=== PATIENT | male | born 1970 | race African-American/Black ===

== ENCOUNTER 2017-04-09 01:02 | Observation (INO) | payer MEDICARE, MEDICAID ==
[2017-04-09] VITALS (13 sets, daily range): BP systolic 105–145; BP diastolic 64–96; PULSE 94–112; RESP 15–21; TEMP 98.2–98.5; O2SAT 98–100
[~2017-04-09] VITALS: Ht 177.8 cm; Wt 61.3 kg
[2017-04-09] MEDS ORDERED: OCUF0.3D EACH EYE (01:54)
[2017-04-09] MEDS ORDERED: ALBU1.25 NEB (01:54)
[2017-04-09] MEDS ORDERED: SCOP1PAT2 (01:54)
[2017-04-09] MEDS ORDERED: COUM10TA G-TUBE (01:54)
[2017-04-09] MEDS ORDERED: SERO25TA G-TUBE (01:54)
[2017-04-09] MEDS ORDERED: TEGR200T G-TUBE (01:54)
[2017-04-09] MEDS ORDERED: DIAZ2TAB G-TUBE ×2 (01:54)
[2017-04-09] MEDS ORDERED: TIZA2CAP3 G-TUBE (01:54)
--- NOTE | 2017-04-09 02:23 | RADRPT ---
EXAM DATE/TIME: 04/09/2017 01:42 [facility] COMPARISON: No previous studies available for comparison. INDICATIONS : Patient has cough and small hole where trach tube previously was with some air escaping. MEDICAL HISTORY : Unobtainable. SURGICAL HISTORY : Tracheostomy. ENCOUNTER: Initial ACUITY: 1 day PAIN SCORE: Non-responsive. LOCATION: chest FINDINGS: No infiltrate seen. No large effusion. No pneumothorax. I don't see a tracheostomy tube. Filamentous radiopaque foreign body seen projecting over the left upper chest, could be a retained ca theter or lead. I don't have any priors. CONCLUSION: 1. No infiltrate, pneumothorax or significant effusion 2. Filamentous radiopaque foreign body projecting over the left upper chest as above.. Saud Jaramillo MD on April 09, 2017 at 2:20 Board Certified Radiologist. This report was verified electronically.
[2017-04-09 03:16] LABS: AUTOMATED NEUTROPHIL # 4.1 TH/MM3 (1.8-7.7); BASOPHIL # 0.1 TH/MM3 (0-0.2); BASOPHIL % 1.1 % (0.0-2.0); EOSINOPHIL # 0.4 TH/MM3 (0-0.4); EOSINOPHIL % 5.2 % (0.0-4.0); HEMATOCRIT 36.5 % (39.0-51.0); HEMO FLAGS DIFF FINAL; LYMPH % 26.7 % (9.0-44.0); MEAN CELL VOLUME 87.2 FL (80.0-100.0); MEAN CORPUSCULAR HEMOGLOBIN 30.1 PG (27.0-34.0); MEAN CORPUSCULAR HGB CONC 34.5 % (32.0-36.0); MONO % 12.1 % (0.0-8.0); NEUT % 54.9 % (16.0-70.0); PLATELET COUNT 318 TH/MM3 (150-450); RED BLOOD COUNT 4.19 MIL/MM3 (4.50-5.90); WHITE BLOOD COUNT 7.6 TH/MM3 (4.0-11.0)
[2017-04-09 03:38] LABS: ANION GAP 7 MEQ/L (5-15); AST (GOT) 37 U/L (15-37); BICARBONATE 30.7 MEQ/L (21.0-32.0); BLOOD UREA NITROGEN 11 MG/DL (7-18); CHLORIDE 101 MEQ/L (98-107); GLOMERULAR FILTRATION RATE 184 ML/MIN (>89); POTASSIUM 3.9 MEQ/L (3.5-5.1); SODIUM (NA) 139 MEQ/L (136-145)
[2017-04-09 03:41] LABS: ALKALINE PHOSPHATASE 103 U/L (45-117); ALT (GPT) 108 U/L (12-78); TOTAL BILIRUBIN ADULT 0.2 MG/DL (0.2-1.0)
--- NOTE | 2017-04-09 03:59 | PD ---
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 It is unclear when it fell out. Patient has history of Anoxic brain injury, is nonverbal, cannot provide any history. PFSH Past Medical History Asthma: No Autoimmune Disease: No Blood Disorders: No Cancer: No Cardiovascular Problems: Yes High Cholesterol: Yes COPD: No Cerebrovascular Accident: No Diabetes: No Gastrointestinal Disorders: Yes Genitourinary: No Headaches: No Hypertension: Yes Musculoskeletal: No Neurologic: Yes Psychiatric: No Respiratory: Yes Seizures: Yes Thyroid Disease: No Tetanus Vaccination: < 5 Years Influenza Vaccination: No Past Surgical History Abdominal Surgery: Yes (PEG) AICD: No Cardiac Surgery: No Ear Surgery: No Endocrine Surgery: No Eye Surgery: No Genitourinary Surgery: No Gynecologic Surgery: No Oral Surgery: No Pacemaker: No Thoracic Surgery: No Other Surgery: Yes (TRACHEOSTOMY) Social History Alcohol Use: No Tobacco Use: No Substance Use: No Allergies-Medications (Allergen,Severity, Reaction): Coded Allergies: Lactose (Verified Allergy, Severe, 04/09/17) Reported Meds & Prescriptions Reported Meds & Active Scripts Active Reported Transderm-Scop (Scopolamine) 1 Mg/3 Days Dis 1.5 Mg Q3D Tizanidine (Tizanidine HCl) 2 Mg Cap 2 Mg G-TUBE DAILY Tegretol (Carbamazepine) 200 Mg Tab 300 Mg G-TUBE BID Tegretol (Carbamazepine) 200 Mg Tab 200 Mg G-TUBE BID Seroquel (Quetiapine Fumarate) 25 Mg Tab 25 Mg G-TUBE TID Ocuflox Opth Drops (Ofloxacin Opth Drops) 0.3 % Drops 1 Drop EACH EYE QID Diazepam 2 Mg Tab 2 Mg G-TUBE Q8HR PRN Diazepam 2 Mg Tab 2 Mg G-TUBE Q6HR PRN Coumadin (Warfarin) 10 Mg Tab 8.5 Mg G-TUBE DAILY Albuterol Neb (Albuterol Sulfate) 1.25 Mg/3 Ml Neb 1.25 Mg NEB Q4HR NEB PRN Review of Systems ROS Limitations: Other: (anoxic brain injury, nonverbal) Physical Exam Narrative GENERAL: Awake and alert, but does not respond when spoken to. SKIN: Focused skin assessment warm/dry. HEAD: Atraumatic. Normocephalic. EYES: Pupils equal and round. No scleral icterus. ENT: Mucous membranes pink and moist. NECK: Tracheostomy stoma present, but mostly closed. CARDIOVASCULAR: Regular rate and rhythm. No murmur appreciated. RESPIRATORY: No accessory muscle use. Clear to auscultation. Breath sounds equal bilaterally. GASTROINTESTINAL: Abdomen soft, non-tender, nondistended. Hepatic and splenic margins not palpable. MUSCULOSKELETAL: No obvious deformities. No clubbing. No cyanosis. No edema. contracted extremities. NEUROLOGICAL: Awake, but does not respond. Data Data Last Documented VS Vital Signs Date Time Temp Pulse Resp B/P Pulse Ox O2 Delivery O2 Flow Rate FiO2 04/09/17 01:13 100 21 04/09/17 01:08 94 18 Room Air 04/09/17 01:04 98.4 110/69 Orders Complete Blood Count With Diff (04/09/17 01:37) Comprehensive Metabolic Panel (04/09/17 01:37) Iv Access Insert/Monitor (04/09/17 01:37) Chest, Single Ap (04/09/17 ) Place In Observation (04/09/17 ) Vital Signs (Adult) Q4H (04/09/17 03:46) Activity Oob With Assistance (04/09/17 03:46) Director Funds Development / Telemetry .CONTINUOUS (04/09/17 03:46) Diet Npo (04/09/17 Breakfast) Sodium Chloride 0.9% Flush (Ns Flush) (04/09/17 04:00) Sodium Chloride 0.9% Flush (Ns Flush) (04/09/17 09:00) Resp Oxygen Rory C Titrat 1-4 L (04/09/17 ) Case Management Consult (04/09/17 03:46) Naloxone Inj (Narcan Inj) (04/09/17 04:00) Admit Order (Ed Use Only) (04/09/17 ) Consult General Surgery (04/09/17 ) Labs Laboratory Tests Test 04/09/17 03:03 White Blood Count 7.6 TH/MM3 Red Blood Count 4.19 MIL/MM3 Hemoglobin 12.6 GM/DL Hematocrit 36.5 % Mean Corpuscular Volume 87.2 FL Mean Corpuscular Hemoglobin 30.1 PG Mean Corpuscular Hemoglobin 34.5 % Concent Red Cell Distribution Width 15.0 % Platelet Count 318 TH/MM3 Mean Platelet Volume 7.4 FL Neutrophils (%) (Auto) 54.9 % Lymphocytes (%) (Auto) 26.7 % Monocytes (%) (Auto) 12.1 % Eosinophils (%) (Auto) 5.2 % Basophils (%) (Auto) 1.1 % Neutrophils # (Auto) 4.1 TH/MM3 Lymphocytes # (Auto) 2.0 TH/MM3 Monocytes # (Auto) 0.9 TH/MM3 Eosinophils # (Auto) 0.4 TH/MM3 Basophils # (Auto) 0.1 TH/MM3 CBC Comment DIFF FINAL Differential Comment Sodium Level 139 MEQ/L Potassium Level 3.9 MEQ/L Chloride Level 101 MEQ/L Carbon Dioxide Level 30.7 MEQ/L Anion Gap 7 MEQ/L Blood Urea Nitrogen 11 MG/DL Creatinine 0.58 MG/DL Estimat Glomerular Filtration 184 ML/MIN Rate Random Glucose 87 MG/DL Calcium Level 8.8 MG/DL Total Bilirubin 0.2 MG/DL Aspartate Amino Transf 37 U/L (AST/SGOT) Alanine Aminotransferase 108 U/L (ALT/SGPT) Alkaline Phosphatase 103 U/L Total Protein 8.1 GM/DL Albumin 2.7 GM/DL [facility] Medical Decision Making Medical Screen Exam Complete: Yes Emergency Medical Condition: Yes Medical Record Reviewed: Yes Differential Diagnosis respiratory issues vs tracheostomy displacement vs pneumonia Narrative Course Patient is a 46 year old male sent from [place] because his tracheostomy tube fell out. Exam shows the stoma is mostly closed. Patient is in no respiratory distress, he is maintaining his oxygen saturation on room air. I attempted to put in a new tube, however, the whole has closed too much and I am unable to reintroduce the tube at this time. Patient is currently stable and in no distress. Will be admitted for surgical placement a new tracheostomy. Diagnosis Primary Impression: Tracheostomy malfunction Admitting Information Admitting Physician Requests: Admit Condition: Stable Bettye Ritchie MD Apr 09, 2017 03:59
[2017-04-09] MEDS ORDERED: NALOXONE HCL 0.4 MG/ML AMP IV PRN (04:00)
[2017-04-09] MEDS ORDERED: SODIUM CHLORIDE 0.9% FLUSH 10 ML FLUSH IV FLUSH PRN (04:00)
[2017-04-09 05:26] LABS: PROTHROMBIN TIME - PATIENT 11.4 SEC (9.8-11.6)
--- NOTE | 2017-04-09 06:53 | HHI.HP ---
[facility] Primary Care Physician Luis Brady MD Admission Diagnosis Tracheostomy replacement Diagnoses: Travel History International Travel<30 Days: No Contact w/Intl Traveler <30 Da: No Traveled to Known Affected Are: No History of Present Illness History from [facility] transfer notes, your physician communication, and review of medical records. Patient is a young gentleman who had anoxic brain injury and permanent vegetative state since prior to 32 years old. He has been taking care of by his family members up until February 22 16. he was then taken care of by his family members prior to this. He was brought into the hospital because his tracheostomy tube was accidentally dislodged at the nursing facility. Patient is not able to give any history. He is saturating 98% on room air. Mild tachycardia around 110. Review of Systems ROS Limitations: Altered Mental Status, Unresponsive Past Family Social History Past Medical History Per [facility] transfer note: Persistent vegetative state Anxiety disorder DVT Chronic respiratory failure status post tracheostomy Anxiety disorder Unspecified comvulsions Unspecified muscle spasms History of pulmonary embolism Status post PEG tube Open wound of left laser toes endopthalmitis Past Surgical History Tracheostomy PEG tube placement Reported Medications Patient's medications list from the nursing homereviewed Allergies: Coded Allergies: Lactose (Verified Allergy, Severe, 04/09/17) Family History Unknown Social History Unknown. Currently vegetative since prior to age of [age] years old. Physical Exam Vital Signs Vital Signs Date Time Temp Pulse Resp B/P Pulse Ox O2 Delivery O2 Flow Rate FiO2 04/09/17 04:58 99 21 04/09/17 01:13 100 21 04/09/17 01:08 94 18 100 Room Air 04/09/17 01:04 98.4 94 18 110/69 100 Physical Exam GENERAL: This is unfortunate, bed bound, contracted, non communicative patient in a vegetative state- in no apparent distress. SKIN: No rashes, ecchymoses or lesions. Cool and dry. HEAD: Atraumatic. Normocephalic. No temporal or scalp tenderness. EYES: No scleral icterus. No injection or drainage. ENT: Nose without bleeding, purulent drainage or septal hematoma. Significant secretions from mouth. Tracheostomy site with open site, thick secretions white NECK: Trachea midline. No JVD. CARDIOVASCULAR: Regular rate and rhythm without murmurs, gallops, or rubs. RESPIRATORY: Breath sounds equal bilaterally. bilateral congested sounds GASTROINTESTINAL: Abdomen soft, non-tender, nondistended. No guarding. MUSCULOSKELETAL: Extremities without clubbing, cyanosis, or edemaNo calf symmetry. Bilateral atrophic LE . Bilateral UE and LE contractures NEUROLOGICAL: non verbal, unresponsive, eyes spontaneously open though not tracking, Laboratory Laboratory Tests Test 04/09/17 04/09/17 03:03 05:02 White Blood Count 7.6 Red Blood Count 4.19 Hemoglobin 12.6 Hematocrit 36.5 Mean Corpuscular Volume 87.2 Mean Corpuscular Hemoglobin 30.1 Mean Corpuscular Hemoglobin 34.5 Concent Red Cell Distribution Width 15.0 Platelet Count 318 Mean Platelet Volume 7.4 Neutrophils (%) (Auto) 54.9 Lymphocytes (%) (Auto) 26.7 Monocytes (%) (Auto) 12.1 Eosinophils (%) (Auto) 5.2 Basophils (%) (Auto) 1.1 Neutrophils # (Auto) 4.1 Lymphocytes # (Auto) 2.0 Monocytes # (Auto) 0.9 Eosinophils # (Auto) 0.4 Basophils # (Auto) 0.1 CBC Comment DIFF FINAL Differential Comment Sodium Level 139 Potassium Level 3.9 Chloride Level 101 Carbon Dioxide Level 30.7 Anion Gap 7 Blood Urea Nitrogen 11 Creatinine 0.58 Estimat Glomerular Filtration 184 Rate Random Glucose 87 Calcium Level 8.8 Total Bilirubin 0.2 Aspartate Amino Transf 37 (AST/SGOT) Alanine Aminotransferase 108 (ALT/SGPT) Alkaline Phosphatase 103 Total Protein 8.1 Albumin 2.7 Prothrombin Time 11.4 Prothromb Time International 1.0 Ratio Blood Type A POSITIVE Antibody Screen NEGATIVE Blood Bank Comment Result Diagram: 04/09/17 0303 04/09/17 0303 Imaging Last 48 hours Impressions Chest X-Ray 04/09/17 0000 Signed Impressions: Service Date/Time: Sunday, April 09, 2017 01:42 - CONCLUSION: 1. No infiltrate, pneumothorax or significant effusion 2. Filamentous radiopaque foreign body projecting over the left upper chest as above.. Saud Jaramillo MD Assessment and Plan Assessment and Plan Impression: tracheostomy dislodged Co morbid conditions: Persistent vegetative state Anxiety disorder DVT Chronic respiratory failure status post tracheostomy Anxiety disorder Unspecified comvulsions Unspecified muscle spasms History of pulmonary embolism Status post PEG tube Open wound of left laser toes endopthalmitis Plan: Patient has been observed a few hours in the emergency room. There is no evidence of hypoxia. She was saturating 98% on term care. However though he does have quite a bit of secretions from both the tracheostomy site and from his mouth. Review of records from [facility] also revealed that patient does have these secretions chronically. Would obtain oxygen supplementation if needed. General surgery consult for surgical placement of this tracheostomy back. Stat PT/INR. Resume home meds apart from Coumadin. DVT prophylaxisto restart Coumadin once no further surgical intervention. Patient would need Lovenox therapeutic overlap as well. GI prophylaxis on pantoprazole. Code Status full code Discussed Condition With ER , nursing staff Darek Hui MD Apr 09, 2017 06:53
[2017-04-09] MEDS ORDERED: RESP: ALBUTEROL 1.25 MG/3 ML NEB (PRN) NEB (07:15)
[2017-04-09] MEDS ORDERED: DIAZEPAM 2 MG TAB G-TUBE PRN ×2 (07:15)
--- NOTE | 2017-04-09 08:28 | HHI.PR ---
Subjective Remarks Patient admitted for trach malfunction. Currently requiring suctioning. O2 sats in low 90s. Discussed with respiratory therapy, ER nurse. Objective Vitals Vital Signs Date Time Temp Pulse Resp B/P Pulse Ox O2 Delivery O2 Flow Rate FiO2 04/09/17 07:30 104 15 114/65 98 Room Air 04/09/17 04:58 99 21 04/09/17 01:13 100 21 04/09/17 01:08 94 18 100 Room Air 04/09/17 01:04 98.4 94 18 110/69 100 Result Diagram: 04/09/17 0303 04/09/17 0303 Imaging Last Impressions Chest X-Ray 04/09/17 0000 Signed Impressions: Service Date/Time: Sunday, April 09, 2017 01:42 - CONCLUSION: 1. No infiltrate, pneumothorax or significant effusion 2. Filamentous radiopaque foreign body projecting over the left upper chest as above.. Saud Jaramillo MD Objective Remarks General: No acute distress. HEENT: Tracheostomy site with significant scar tissue and thick white secretions. Heart: Regular rate and rhythm. No murmur. Lungs: Coarse breath sounds bilaterally. Breathing is nonlabored. Abdomen: Soft, nontender, nondistended. Extremities: No lower extremity edema. Psych: Nonverbal, does not follow commands. Vascular Central Line Catheter: No A/P Problem List: (1) Tracheostomy malfunction ICD Code: J95.03 Status: Acute Assessment and Plan 1. Tracheostomy malfunction: The patient's tracheostomy became dislodged at the nursing facility. The ER physician was unable to replace the tracheostomy. Gen. surgery consultation is pending. Patient maintains oxygen saturations in the mid to upper 90s until he requires suctioning of thick secretions. At that time his oxygen saturation drops to the low 90s. Discussed with respiratory therapy. Will place trach collar while awaiting general surgery evaluation. 2. Persistent vegetative state: Continue current care. Tube feeds via PEG tube. 3. History of DVT: Coumadin on hold for probable surgical procedure. Restart anticoagulation following procedure. Discharge Planning Anticipate discharge back to nursing facility soon following replacement of tracheostomy. Reilly Kelley MD Apr 09, 2017 08:28
[2017-04-09] MEDS ORDERED: SCOPOLAMINE 1.5 MG PATCH T-DERMAL SCH (09:00)
[2017-04-09] MEDS: OFLOXACIN 0.3% OPTH SOLN 5 ML BTL EACH EYE SCH ×2 (09:34→14:05)
[2017-04-09] MEDS: carBAMazepine 200 MG TAB G-TUBE SCH ×4 (09:35→22:49)
[2017-04-09] MEDS: QUEtiapine FUMARATE 25 MG TAB G-TUBE SCH ×2 (09:35→14:05)
[2017-04-09] MEDS: SODIUM CHLORIDE 0.9% FLUSH 10 ML FLUSH IV FLUSH SCH ×2 (09:36→22:49)
[2017-04-09] MEDS ORDERED: PROPOFOL 200 MG/20 ML AMP IV ONE (12:00)
[2017-04-09] MEDS ORDERED: PHENYLEPH/NS 1000 MCG/10 ML SYR IV ONE (12:00)
--- NOTE | 2017-04-09 12:30 | PD.CONS ---
cc: Francisco Bowling MD HPI Service General Surgery Consult Requested By Dr. Hui Reason for Consult Tracheostomy tube replacement Primary Care Physician Luis Brady MD History of Present Illness This is a 46-year-old male status post tracheostomy tube and PEG placement approximately 14 years ago after having an anoxic brain injury related to overdose of Haldol. He currently resides in a [facility]. He has his tracheostomy tube changed approximately every [address] Tolentino in [place]. The patient is only on humidified oxygen. The patient does have copious secretions from the tracheostomy tube and is requesting a tracheostomy to be replaced. The emergency room doctor attempted to replaced his tracheostomy tube but the stoma had already started to close. The patient is currently able to protect his airway. The patient usual has a #[address] tracheostomy tube in place. A General Surgery consultation has been requested for replacement of tracheostomy tube. Review of Systems ROS Limitations: Other (Persistant vegative state ) Past Family Social History Past Medical History Persistent vegetative state Anoxic brain injury Seizure Past Surgical History Tracheostomy tube placement PEG placement Reported Medications Please see chart but of note he does take Coumadin Allergies: Coded Allergies: Lactose (Verified Allergy, Severe, 04/09/17) Active Ordered Medications Current Medications Medications (Trade) Dose Ordered Sig/Sveta Route Start Time Stop Time Status Last Admin (NS Flush) 2 ml UNSCH PRN IV FLUSH 04/09/17 04:00 (NS Flush) 2 ml BID IV FLUSH 04/09/17 09:00 04/09/17 09:36 (Narcan Inj) 0.4 mg UNSCH PRN IV 04/09/17 04:00 (TEGretol) 200 mg BID G-TUBE 04/09/17 09:00 04/09/17 09:35 (TEGretol) 300 mg BID G-TUBE 04/09/17 09:00 04/09/17 09:35 (Valium) 2 mg Q6HR PRN G-TUBE 04/09/17 07:15 (Valium) 2 mg Q8HR PRN G-TUBE 04/09/17 07:15 (Ocuflox 0.3% Opth Soln) 1 drop QID EACH EYE 04/09/17 09:00 04/09/17 09:34 (SEROquel) 25 mg TID G-TUBE 04/09/17 09:00 04/09/17 09:35 (Transderm-Scop 1.5 Mg Patch.72 Hr) 1 patch Q3D T-DERMAL 04/09/17 09:00 04/09/17 09:35 (Zanaflex) 2 mg DAILY G-TUBE 04/09/17 09:00 04/09/17 09:35 Miscellaneous Information 1 Q3D T-DERMAL 04/12/17 09:00 Family History Non contributory Social History No tobacco use No ETOH use No illicit drug use The patient resides in a [facility]. Physical Exam Vital Signs Vital Signs Date Time Temp Pulse Resp B/P Pulse Ox O2 Delivery O2 Flow Rate FiO2 04/09/17 10:00 103 20 105/64 100 Room Air 04/09/17 08:15 100 Trach Collar 50 04/09/17 07:30 104 15 114/65 98 Room Air 04/09/17 04:58 99 21 04/09/17 01:13 100 21 04/09/17 01:08 94 18 100 Room Air 04/09/17 01:04 98.4 94 18 110/69 100 Physical Exam GENERAL: 46 year old chronically ill appearing male in no acute distress. SKIN: Warm and dry. HEAD: Atraumatic. Normocephalic. EYES: Pupils equal and round. No scleral icterus. No injection or drainage. ENT: No nasal bleeding or discharge. Mucous membranes pink and moist. NECK: Prior trach site with closing stoma; on humidified air; minimal thin secretions from stoma. CARDIOVASCULAR: Regular rate and rhythm. Mildly tachycardic. RESPIRATORY: No accessory muscle use. Mild course breath sounds. GASTROINTESTINAL: Abdomen soft, non-tender, nondistended. PEG in place. MUSCULOSKELETAL: BUE and BLE contractures. NEUROLOGICAL: Patient non verbal; awake; not able to follow commands. PSYCHIATRIC: Unable to examine. Laboratory Laboratory Tests Test 04/09/17 04/09/17 03:03 05:02 White Blood Count 7.6 Red Blood Count 4.19 Hemoglobin 12.6 Hematocrit 36.5 Mean Corpuscular Volume 87.2 Mean Corpuscular Hemoglobin 30.1 Mean Corpuscular Hemoglobin 34.5 Concent Red Cell Distribution Width 15.0 Platelet Count 318 Mean Platelet Volume 7.4 Neutrophils (%) (Auto) 54.9 Lymphocytes (%) (Auto) 26.7 Monocytes (%) (Auto) 12.1 Eosinophils (%) (Auto) 5.2 Basophils (%) (Auto) 1.1 Neutrophils # (Auto) 4.1 Lymphocytes # (Auto) 2.0 Monocytes # (Auto) 0.9 Eosinophils # (Auto) 0.4 Basophils # (Auto) 0.1 CBC Comment DIFF FINAL Differential Comment Sodium Level 139 Potassium Level 3.9 Chloride Level 101 Carbon Dioxide Level 30.7 Anion Gap 7 Blood Urea Nitrogen 11 Creatinine 0.58 Estimat Glomerular Filtration 184 Rate Random Glucose 87 Calcium Level 8.8 Total Bilirubin 0.2 Aspartate Amino Transf 37 (AST/SGOT) Alanine Aminotransferase 108 (ALT/SGPT) Alkaline Phosphatase 103 Total Protein 8.1 Albumin 2.7 Prothrombin Time 11.4 Prothromb Time International 1.0 Ratio Blood Type A POSITIVE Antibody Screen NEGATIVE Blood Bank Comment Result Diagram: 04/09/17 0303 04/09/17 0303 Imaging Last 48 hours Impressions Chest X-Ray 04/09/17 0000 Signed Impressions: Service Date/Time: Sunday, April 09, 2017 01:42 - CONCLUSION: 1. No infiltrate, pneumothorax or significant effusion 2. Filamentous radiopaque foreign body projecting over the left upper chest as above.. Saud Jaramillo MD Assessment and Plan Assessment and Plan 46 year old male s/p anoxic brain injury with chronic tracheostomy tube and PEG placement; dislodgement of trach at [facility] -Plan for OR replacement of trach today -Continue to hold Coumadin; INR 1.0 -NPO -Obtain consents -Discussed with patient's mother and aunt bedside -Discussed with DONA Dumont -Thank you for this consult; We will continue to follow I CERTIFY AND ATTEST THAT I PERSONALLY EXAMINED THE PATIENT AND REVIEWED EMR. MS LUNDBERG DOCUMENTED OUR VISIT. I DISCUSSED CASE WITH PATIENT'S MOTHER AND SHE AGREES TO PLAN. WILL TAKE HIM TO THE OR AND REPLACE AND UPSIZE HIS TRACHEOSTOMY TO A 8 SHILEY. FRANCISCO BOWLING MD FACS Discussed Condition With Dr. Bowling Mr. Hill's family at bedside Rhoda Benoit Apr 09, 2017 12:30 Francisco Bowling MD Apr 09, 2017 20:22
[2017-04-09] MEDS ORDERED: LIDOCAINE 1%/EPINEPHrine 1:100,000 SOLN 20 ML VIAL ONE (12:52)
[2017-04-09] MEDS ORDERED: KETAMINE HCL 500 MG/5 ML VIAL ONE (15:11)
[2017-04-09] MEDS ORDERED: ceFAZolin INJ 1,000 MG VIAL IV ONE (15:35)
[2017-04-09] MEDS ORDERED: SUGAMMADEX SODIUM 200 MG/2 ML VIAL IV PUSH ONE ×2 (15:55)
[2017-04-09] MEDS ORDERED: DO NOT ADM ANY ANTICOAGULANT DRUGS PRN (16:09)
[2017-04-09] MEDS ORDERED: *MEPERIDINE 25 MG INJ VIAL PERIprocedural Use ONLY ONE (16:16)
--- NOTE | 2017-04-09 17:20 | RADRPT ---
EXAM DATE/TIME: 04/09/2017 16:50 [facility] COMPARISON: CHEST SINGLE AP, April 09, 2017, 1:42. INDICATIONS : Tracheostomy placement. MEDICAL HISTORY : None. SURGICAL HISTORY : Tracheostomy. ENCOUNTER: Initial ACUITY: 1 day PAIN SCORE: 0/10 LOCATION: Bilateral chest FINDINGS: A single view of the chest demonstrates patient's hands folded over the chest with limited visualizat ion of the lungs themselves. Tracheostomy tube is identified with the tip positioned at the clavicula r head. Osseous structures are grossly intact. CONCLUSION: 1. Tracheostomy tube is appropriately positioned with the tip at the level of the clavicular heads. 2. Most of the lungs are obscured by the bones of the hands bilaterally. The lung apices are clear. Bassam Alcantara MD on April 09, 2017 at 17:17 Board Certified Radiologist. This report was verified electronically.
[2017-04-10] VITALS (7 sets, daily range): BP systolic 90–132; BP diastolic 53–87; PULSE 77–123; RESP 16–20; TEMP 98.2–99; O2SAT 93–100
[2017-04-10] MEDS: SODIUM CHLORIDE 0.9% FLUSH 10 ML FLUSH IV FLUSH SCH ×2 (08:24→21:00)
[2017-04-10] MEDS: carBAMazepine 200 MG TAB G-TUBE SCH ×4 (09:45→21:16)
[2017-04-10] MEDS: QUEtiapine FUMARATE 25 MG TAB G-TUBE SCH ×3 (09:45→18:39)
--- NOTE | 2017-04-10 10:16 | HHI.PR ---
Subjective Remarks Follow up trach malfunction. No events reported overnight by nursing. Patient is nonverbal and does not follow commands. Objective Vitals Vital Signs Date Time Temp Pulse Resp B/P Pulse Ox O2 Delivery O2 Flow Rate FiO2 04/10/17 04:00 98.9 105 18 119/63 100 04/10/17 03:54 Trach Collar 28 04/10/17 00:00 Trach Collar 28 Humidified 04/10/17 00:00 98.2 97 16 132/75 100 04/09/17 20:57 100 T-piece 6.00 28 04/09/17 20:00 107 04/09/17 20:00 Trach Collar 28 Humidified 04/09/17 20:00 98.5 96 16 131/82 100 04/09/17 17:48 98.2 96 20 145/96 100 04/09/17 17:15 91 18 118/72 100 T-Piece 28 Humidified 04/09/17 17:00 96 18 112/68 100 T-Piece 28 Humidified 04/09/17 16:45 107 21 110/64 100 T-Piece 28 Humidified 04/09/17 16:30 117 24 104/65 100 T-Piece 28 Humidified 04/09/17 16:15 125 30 147/88 100 Trach Collar 50 Humidified 04/09/17 16:12 97.3 115 30 132/90 100 Trach Collar 50 04/09/17 14:00 99 20 124/92 100 Trach Collar 50 04/09/17 13:00 98 20 123/83 100 Trach Collar 50 04/09/17 12:00 102 21 127/87 100 Trach Collar 50 04/09/17 11:00 112 20 117/81 100 Trach Collar 50 I/O 04/09/17 04/09/17 04/09/17 04/10/17 04/10/17 04/10/17 07:00 15:00 23:00 07:00 15:00 23:00 Intake Total 989 ml 509 ml Output Total 75 ml 450 ml Balance 914 ml 59 ml Intake Oral 0 ml IV Total 200 ml Tube Feeding 189 ml 459 ml Other 600 ml 50 ml Output Urine Total 450 ml Estimated Blood Loss 75 ml # Voids 0 # Bowel Movements 2 1 Result Diagram: 04/09/17 0303 04/09/17 0303 Imaging Last Impressions Chest X-Ray 04/09/17 0000 Signed Impressions: Service Date/Time: Sunday, April 09, 2017 16:50 - CONCLUSION: 1. Tracheostomy tube is appropriately positioned with the tip at the level of the clavicular heads. 2. Most of the lungs are obscured by the bones of the hands bilaterally. The lung apices are clear. Bassam Alcantara MD Objective Remarks General: No acute distress. HEENT: Tracheostomy with small amount of bloody drainage. Heart: Regular rate and rhythm. No murmur. Lungs: Coarse breath sounds bilaterally. Breathing is nonlabored. Abdomen: Soft, nontender, nondistended. Extremities: No lower extremity edema. Psych: Nonverbal, does not follow commands. Procedures 04/09/17 tracheostomy placement Urinary Catheter: No Vascular Central Line Catheter: No A/P Problem List: (1) Tracheostomy malfunction ICD Code: J95.03 Status: Acute Assessment and Plan 1. Tracheostomy malfunction: The patient's tracheostomy became dislodged at the nursing facility. The ER physician was unable to replace the tracheostomy. Status post replacement of tracheostomy by general surgery. 2. Persistent vegetative state: Continue current care. Tube feeds via PEG tube. 3. History of DVT: Resume Coumadin when okay by general surgery. Discharge Planning Plan for discharge to SNF when cleared by surgery. Reilly Kelley MD Apr 10, 2017 10:16
[2017-04-10] MEDS: OFLOXACIN 0.3% OPTH SOLN 5 ML BTL EACH EYE SCH ×4 (11:36→21:16)
--- NOTE | 2017-04-10 17:31 | HHI.PR ---
Subjective Subjective Notes Trach site looks fine Objective Vitals/I&O Vital Signs Date Time Temp Pulse Resp B/P Pulse Ox O2 Delivery O2 Flow Rate FiO2 04/10/17 08:00 99.0 91 20 121/70 100 04/10/17 03:54 Trach Collar 28 04/09/17 20:57 6.00 Radiology Last 48 hours Impressions Chest X-Ray 04/09/17 0000 Signed Impressions: Service Date/Time: Sunday, April 09, 2017 01:42 - CONCLUSION: 1. No infiltrate, pneumothorax or significant effusion 2. Filamentous radiopaque foreign body projecting over the left upper chest as above.. Saud Jaramillo MD Narrative Exam no bloody drainage or otherwise around trach. A/P Assessment and Plan POD replace trach. Uncomplicated. Will sign off. Bala Patricia MD Apr 10, 2017 17:31
[2017-04-11] VITALS: BP 120/60; PULSE 116; RESP 20; TEMP 98; O2SAT 97
[2017-04-11 06:00] VITALS: BP 116/68; PULSE 100; RESP 20; TEMP 98.6; O2SAT 99
[2017-04-11 07:15] VITALS: O2SAT 99
[2017-04-11 08:30] VITALS: PULSE 110
[2017-04-11 08:54] VITALS: BP 117/66; PULSE 113; TEMP 99.4; O2SAT 100
[2017-04-11] MEDS ORDERED: carBAMazepine 200 MG TAB G-TUBE SCH (09:00)
--- NOTE | 2017-04-11 09:05 | HHI.DCPOC ---
Discharge Care Plan Diagnosis: (1) Tracheostomy malfunction Goals to Promote Your Health * To prevent worsening of your condition and complications * To maintain your health at the optimal level Directions to Meet Your Goals Take your medications as prescribed Follow your dietary instruction Follow activity as directed Keep your appointments as scheduled Take your immunizations and boosters as scheduled If your symptoms worsen call your PCP, if no PCP go to Urgent Care Center or Emergency Room Smoking is Dangerous to Your Health. Avoid second hand smoke Call the 24-hour hour crisis hotline for domestic abuse at Reilly Kelley MD Apr 11, 2017 09:05
[2017-04-11] MEDS: QUEtiapine FUMARATE 25 MG TAB G-TUBE SCH ×2 (09:57→13:23)
[2017-04-11] MEDS: SODIUM CHLORIDE 0.9% FLUSH 10 ML FLUSH IV FLUSH SCH (10:03)
[2017-04-11] MEDS: OFLOXACIN 0.3% OPTH SOLN 5 ML BTL EACH EYE SCH ×2 (10:03→13:24)
[2017-04-11] MEDS ORDERED: DIAZ2TAB G-TUBE ×2 (10:20)
--- NOTE | 2017-04-11 10:23 | HHI.PR ---
Subjective Remarks Follow up trach malfunction. No events reported by nursing. General surgery signed off. Objective Vitals Vital Signs Date Time Temp Pulse Resp B/P Pulse Ox O2 Delivery O2 Flow Rate FiO2 04/11/17 08:54 99.4 113 117/66 100 04/11/17 07:15 T-Piece 5.00 28 04/11/17 06:00 98.6 100 20 116/68 99 04/11/17 04:00 T-Piece 4.00 28 04/11/17 00:00 98.0 116 20 120/60 97 04/11/17 00:00 T-Piece 4.00 28 04/10/17 21:10 93 T-piece 5.00 28 04/10/17 20:00 T-Piece 4.00 28 04/10/17 20:00 98.2 123 20 116/55 96 04/10/17 20:00 111 04/10/17 16:00 98.3 113 20 116/75 97 04/10/17 12:00 98.5 77 20 90/53 100 I/O 04/10/17 04/10/17 04/10/17 04/11/17 04/11/17 04/11/17 06:59 14:59 22:59 06:59 14:59 22:59 Intake Total 509 ml 0 ml 844 ml 529 ml Output Total 450 ml 400 ml 0 ml Balance 59 ml -400 ml 844 ml 529 ml Intake Oral 0 ml 0 ml Tube Feeding 459 ml 784 ml 469 ml Tube Irrigant 60 ml 60 ml Other 50 ml Output Urine Total 450 ml 400 ml 0 ml # Voids 1 2 # Bowel Movements 1 1 Result Diagram: 04/09/17 0303 04/09/17 0303 Imaging Last Impressions Chest X-Ray 04/09/17 0000 Signed Impressions: Service Date/Time: Sunday, April 09, 2017 16:50 - CONCLUSION: 1. Tracheostomy tube is appropriately positioned with the tip at the level of the clavicular heads. 2. Most of the lungs are obscured by the bones of the hands bilaterally. The lung apices are clear. Bassam Alcantara MD Objective Remarks General: No acute distress. HEENT: Tracheostomy. Heart: Regular rate and rhythm. No murmur. Lungs: Coarse breath sounds bilaterally. Breathing is nonlabored. Abdomen: Soft, nontender, nondistended. Extremities: No lower extremity edema. Psych: Nonverbal, does not follow commands. Procedures 04/09/17 tracheostomy placement Urinary Catheter: No Vascular Central Line Catheter: No A/P Problem List: (1) Tracheostomy malfunction ICD Code: J95.03 Status: Acute Assessment and Plan 1. Tracheostomy malfunction: The patient's tracheostomy became dislodged at the nursing facility. The ER physician was unable to replace the tracheostomy. Status post replacement of tracheostomy by general surgery. Remained stable overnight. 2. Persistent vegetative state: Continue current care. Tube feeds via PEG tube. 3. History of DVT: Resume Coumadin. Discharge Planning Discharge to SNF. Reilly Kelley MD Apr 11, 2017 10:23
[2017-04-11 12:40] VITALS: BP 112/72; PULSE 91; TEMP 98.6; O2SAT 98
--- NOTE | 2017-04-11 19:22 | MP ---
cc: FRANCISCO BOWLING M.D. DATE OF SURGERY 04/09/2017 PREOPERATIVE DIAGNOSES 1. Dislodged tracheostomy. 2. Chronic tracheostomy secondary to a anoxic brain injury. POSTOPERATIVE DIAGNOSES 1. Dislodged tracheostomy. 2. Chronic tracheostomy secondary to a anoxic brain injury. PROCEDURE PERFORMED Revision percutaneous tracheostomy tube #8 Shiley. SURGEON Francisco Bowling MD ANESTHESIA General endotracheal. COMPLICATIONS None. INDICATION FOR THE PROCEDURE Mr. Hill is an unfortunate 46-year-old Afro-Indian male who apparently suffered an anoxic brain injury many years ago. He has had a chronic tracheostomy in place. He resides at a nursing facility. Apparently he has had trouble recently with coughing the tracheostomy tube out. Apparently, he coughed it out overnight and no one was aware of it. When they came to check on him this morning they noticed it was out and they sent him over to the hospital. Apparently the ER doctor was unable to replace it and requested surgical intervention. The patient was stable and doing well and was saturating fine and breathing in no distress. Surgical consultation was requested and we evaluated the patient. I recommended that we take him to the OR so we could upsize his tracheostomy tube. He previously had a 6 in for many years and I asked his mother why this was and she was unsure. He was clearly of adult size and needed and 8 in order to suction him. The mother states they have had quite a difficult time suctioning him through the 6 and he has had significant secretions. I recommended upsizing to an 8 in the operating room and she was agreeable. DETAILS OF THE PROCEDURE The patient was identified. Time-out was taken. The anterior neck was then prepped and draped in standard surgical fashion. General endotracheal anesthesia was achieved by anesthesia without any difficulty. The patient had a large amount of scar tissue at the base of the neck. This was injected with local anesthetic and then excised with the electrocautery Bovie in order to clear off all the granulation tissue. Once we did this we had clear view of the patient's trachea and endotracheal tube. No bleeding was noted from the granulation tissue as we had used the Bovie. The cuff was below us and we had no anesthesia, gases or oxygen in the area while we were using the Bovie. Once we did this, the endotracheal tube was carefully withdrawn out of the surgical field. Blue rhino percutaneous dilatational tracheostomy was then performed using only the blue rhino to enlarge the tracheotomy and subcutaneous tissue. A #8 fenestrated Shiley tracheostomy tube was then inserted without any difficulty whatsoever. The cuff was inflated and a bronchoscope was used to confirm positioning. The patient had no bleeding whatsoever and minimal secretions in the mainstem trachea. Tracheostomy tube was then secured with a 2-0 Prolene on each side. The patient was connected to the ventilator and found to have excellent tidal volumes. The patient tolerated the procedure without any instability whatsoever. He was awakened, brought to recovery in stable condition. MD ANGELITO Soto/MAXIMILIANO /3:59 PM /7:09 PM
[2017-04-12] MEDS ORDERED: REMOVE OLD SCOPOLAMINE PATCH T-DERMAL SCH (09:00)
== END 2017-04-11 14:33 ==
LOC: NEPE 01:02 → NEDA 03:50 → INTOOBSV 03:50 → NEDA 03:55 → UNDOADMIN 03:55 → N04A 18:00 → NEDA 18:00 → UNDODISIN 04-11 14:33
PROVIDERS: ADMIT Family Medicine; ATTEND Family Medicine
DX: J95.03 Malfunction of tracheostomy stoma (principal); R40.3 Persistent vegetative state; F41.9 Anxiety disorder, unspecified; G93.1 Anoxic brain damage, not elsewhere classified; R00.0 Tachycardia, unspecified; R41.82 Altered mental status, unspecified; R05 Cough; I10 Essential (primary) hypertension; J96.10 Chronic respiratory failure, unspecified whether with hypoxia or hypercapnia; R91.8 Other nonspecific abnormal finding of lung field; E78.00 Pure hypercholesterolemia, unspecified; R56.9 Unspecified convulsions; T43.4X Poisoning by, adverse effect of and underdosing of butyrophenone and thiothixene neuroleptics; Z79.899 Other long term (current) drug therapy; Z86.711 Personal history of pulmonary embolism; Z86.718 Personal history of other venous thrombosis and embolism; Z74.01 Bed confinement status; X58.XXXS Exposure to other specified factors, sequela
CPT/HCPCS: 00320; 31613; 71010; 80053; 85025; 85610; 86850; 86900; 86901; 99285; A7521; G0378; J0690; J2175; J2370

== ENCOUNTER 2017-07-16 01:30 | Inpatient (IN) | payer MEDICARE, MEDICAID ==
[2017-07-16] VITALS (14 sets, daily range): BP systolic 98–141; BP diastolic 60–75; PULSE 99–116; RESP 14–24; TEMP 97.8–99.3; O2SAT 93–100
[~2017-07-16] VITALS: Ht 172.7 cm; Wt 72.1 kg
[~2017-07-16 01:30] MED LIST: ALBU1.25 NEB; COUM10TA G-TUBE; DIAZ2TAB G-TUBE; OCUF0.3D EACH EYE; SCOP1PAT2; SERO25TA G-TUBE; TEGR200T G-TUBE; TIZA2CAP3 G-TUBE
[2017-07-16] MEDS ORDERED: SODIUM CHLOR 0.9% 1000 ML INJ 1,000 ML IV ONE ×5 (01:41→10:30)
--- NOTE | 2017-07-16 02:01 | PD ---
HPI Chief Complaint: Altered Mental Status Time Seen by Provider: 01:33 Travel History International Travel<30 days: No Contact w/Intl Traveler<30days: No Traveled to known affect area: No History of Present Illness HPI 46-year-old male with history of anoxic brain injury, [facility] patient, tracheostomy, brought in by kal Hitchcock from his [facility] for evaluation of change in mental status. It is unknown when the patient's mental status changed , however he was noted to not be behaving like himself at around 11:00 PM. He arrives in the emergency department at 1:30 AM. According to EMS, the patient is usually able to look around the room and track whoever is in the room, however he has not been doing this. He is nonverbal and is unable to provide any history. BGL performed by EMS was 116. PFSH Past Medical History Asthma: No Autoimmune Disease: No Blood Disorders: No Anxiety: No Depression: No Cancer: No Cardiovascular Problems: Yes High Cholesterol: Yes COPD: No Cerebrovascular Accident: No Diabetes: No Diminished Hearing: No Gastrointestinal Disorders: Yes Genitourinary: No Headaches: No Hypertension: Yes Musculoskeletal: No Neurologic: Yes Psychiatric: No Respiratory: Yes Seizures: Yes Thyroid Disease: No Tetanus Vaccination: Unknown Past Surgical History Abdominal Surgery: Yes (PEG) AICD: No Cardiac Surgery: No Ear Surgery: No Endocrine Surgery: No Eye Surgery: No Genitourinary Surgery: No Gynecologic Surgery: No Oral Surgery: No Pacemaker: No Thoracic Surgery: No Other Surgery: Yes (TRACHEOSTOMY) Social History Alcohol Use: No Tobacco Use: No Substance Use: No Allergies-Medications (Allergen,Severity, Reaction): Coded Allergies: lactose (Unverified Allergy, Severe, 04/13/17) Reported Meds & Prescriptions Reported Meds & Active Scripts Active Reported Seroquel (Quetiapine Fumarate) 25 Mg Tab 25 Mg PO BID Tizanidine (Tizanidine HCl) 4 Mg Tab 4 Mg PO DAILY Cetirizine Allergy Childrens Liq (Cetirizine HCl) 5 Mg/5 Ml Soln 5 Mg PO DAILY Transderm-Scop (Scopolamine) 1 Mg/3 Days Dis 1.5 Mg Q3D Tegretol (Carbamazepine) 200 Mg Tab 300 Mg G-TUBE BID Tegretol (Carbamazepine) 200 Mg Tab 200 Mg G-TUBE BID Coumadin (Warfarin) 10 Mg Tab 8.5 Mg G-TUBE DAILY Review of Systems ROS Limitations: Clinical Condition Physical Exam Narrative GENERAL: Well-developed, thin, drowsy, arouses to voice and painful stimuli, upper and lower extremity contractures. SKIN: Focused skin assessment warm/dry. No rashes. HEAD: Atraumatic. Normocephalic. EYES: Pupils equal and round. No scleral icterus. No injection or drainage. ENT: Mucous membranes pink and dry. NECK: Trachea midline. No JVD. Tracheostomy. No nuchal rigidity. CARDIOVASCULAR: Tachycardic, rate 101, regular. RESPIRATORY: No accessory muscle use. Clear to auscultation. Breath sounds equal bilaterally. GASTROINTESTINAL: Abdomen soft, non-tender, nondistended. PEG tube was site clean, dry, intact. MUSCULOSKELETAL: No obvious deformities. No clubbing. No cyanosis. No edema. NEUROLOGICAL: Drowsy. Arouses to voice and painful stimuli. Data Data Last Documented VS Vital Signs Date Time Temp Pulse Resp B/P (MAP) Pulse Ox O2 Delivery O2 Flow Rate FiO2 07/16/17 01:48 98 Trach Collar 3.00 07/16/17 01:38 98.5 115 16 98/61 (73) Orders Orders Sepsis Workup Initiated (07/16/17 ) Electrocardiogram (07/16/17 01:41) Complete Blood Count With Diff (07/16/17 01:41) Comprehensive Metabolic Panel (07/16/17 01:41) Lactic Acid Sepsis Protocol (07/16/17 01:41) Urinalysis - C+S If Indicated (07/16/17 01:41) Influenzae A/B Antigen (07/16/17 01:41) Blood Culture (07/16/17 01:41) Chest, Single Ap (07/16/17 01:41) Blood Glucose (07/16/17 01:41) Ecg Monitoring (07/16/17 01:41) Iv Access Insert/Monitor (07/16/17 01:41) Oximetry (07/16/17 01:41) Oxygen Administration (07/16/17 01:41) Sodium Chlor 0.9% 1000 Ml Inj (Ns 1000 M (07/16/17 01:41) Ammonia (07/16/17 01:41) Thyroid Stimulating Hormone (07/16/17 01:41) Ct Brain W/O Iv Contrast(Rout) (07/16/17 ) Sputum Culture And Gram Stain (07/16/17 01:58) Prothrombin Time / Inr (Pt) (07/16/17 02:37) Act Partial Throm Time (Ptt) (07/16/17 02:37) Cefepime Inj (Maxipime Inj) (07/16/17 03:00) Azithromycin Inj (Zithromax Inj) (07/16/17 03:00) Sodium Chlor 0.9% 1000 Ml Inj (Ns 1000 M (07/16/17 03:15) Admit Order (Ed Use Only) (07/16/17 03:24) Labs Laboratory Tests Test 07/16/17 02:10 07/16/17 02:40 White Blood Count 17.0 TH/MM3 Red Blood Count 4.20 MIL/MM3 Hemoglobin 11.8 GM/DL Hematocrit 35.4 % Mean Corpuscular Volume 84.4 FL Mean Corpuscular Hemoglobin 28.1 PG Mean Corpuscular Hemoglobin Concent 33.2 % Red Cell Distribution Width 15.0 % Platelet Count 343 TH/MM3 Mean Platelet Volume 7.3 FL Neutrophils (%) (Auto) 67.6 % Lymphocytes (%) (Auto) 11.7 % Monocytes (%) (Auto) 18.5 % Eosinophils (%) (Auto) 1.7 % Basophils (%) (Auto) 0.5 % Neutrophils # (Auto) 11.4 TH/MM3 Lymphocytes # (Auto) 2.0 TH/MM3 Monocytes # (Auto) 3.1 TH/MM3 Eosinophils # (Auto) 0.3 TH/MM3 Basophils # (Auto) 0.1 TH/MM3 CBC Comment AUTO DIFF Differential Total Cells Counted 100 Neutrophils % (Manual) 48 % Band Neutrophils % 17 % Lymphocytes % 18 % Monocytes % 14 % Eosinophils % 2 % Basophils % 1 % Neutrophils # (Manual) 11.1 TH/MM3 Differential Comment FINAL DIFF MANUAL Toxic Granulation 1+ Toxic Vacuolation PRESENT Platelet Estimate NORMAL Platelet Morphology Comment NORMAL Urine Color YELLOW Urine Turbidity CLEAR Urine pH 7.0 Urine Specific [place] 1.020 Urine Protein TRACE mg/dL Urine Glucose (UA) NEG mg/dL Urine Ketones NEG mg/dL Urine Occult Blood NEG Urine Nitrite NEG Urine Bilirubin NEG Urine Urobilinogen 2.0 MG/DL Urine Leukocyte Esterase NEG Urine RBC 4 /hpf Urine WBC 1 /hpf Urine Mucus FEW /lpf Microscopic Urinalysis Comment CATH-CULT NOT IND Blood Urea Nitrogen 18 MG/DL Creatinine 0.64 MG/DL Random Glucose 104 MG/DL Total Protein 7.5 GM/DL Albumin 2.3 GM/DL Calcium Level 8.1 MG/DL Alkaline Phosphatase 98 U/L Aspartate Amino Transf (AST/SGOT) 17 U/L Alanine Aminotransferase (ALT/SGPT) 38 U/L Total Bilirubin 0.4 MG/DL Sodium Level 136 MEQ/L Potassium Level 3.7 MEQ/L Chloride Level 102 MEQ/L Carbon Dioxide Level 27.2 MEQ/L Anion Gap 7 MEQ/L Estimat Glomerular Filtration Rate 165 ML/MIN Lactic Acid Level 1.6 mmol/L Ammonia LESS THAN 10 MCMOL/L Thyroid Stimulating Hormone 3rd Gen 1.990 uIU/ML Prothrombin Time 41.5 SEC Prothromb Time International Ratio 3.6 RATIO Activated Partial Thromboplast Time 51.7 SEC MDM Medical Decision Making Medical Screen Exam Complete: Yes Emergency Medical Condition: Yes Differential Diagnosis Sepsis, pneumonia, UTI, metabolic abnormality, intracranial abnormality Narrative Course Initial vital signs show heart rate 115, blood pressure 98/61, pulse ox 97% on 3 L through his tracheostomy, rectal temp of 98.5F. CBC: WBC 17, hemoglobin 11.8, hematocrit 35.4, platelets 343, 17% band neutrophils CMP is unremarkable. INR is slightly elevated at 3.6. Lactic acid is 1.6. Ammonia level is 10. TSH is 1.99. UA is not suggestive of UTI. Chest x-ray: Left lower lobe consolidation. CT head: Markedly abnormal scan demonstrating severe atrophy of the supratentorial brain and moderate atrophy of the cerebellum. Blood culture sent. Patient started on cefepime and azithromycin. Sputum culture sent. He was provided 2 L of normal saline IV. He will be admitted for further treatment and evaluation of sepsis, pneumonia, AMS. Case discussed with hospitalist Dr. Rock who will admit the patient to her service. Diagnosis Primary Impression: Sepsis Qualified Codes: A41.9 - Sepsis, unspecified organism Additional Impressions: Pneumonia Qualified Codes: J18.1 - Lobar pneumonia, unspecified organism Altered mental status Qualified Codes: R41.82 - Altered mental status, unspecified Admitting Information Admitting Physician Requests: Admit Russell Hilliard MD Jul 16, 2017 02:01
[2017-07-16] MEDS ORDERED: TIZA4TAB PO (02:12)
[2017-07-16] MEDS ORDERED: SERO25TA PO (02:12)
[2017-07-16] MEDS ORDERED: CETI5SOL16 PO (02:12)
[2017-07-16 02:30] LABS: AUTOMATED NEUTROPHIL # 11.4 TH/MM3 (1.8-7.7); BASOPHIL # 0.1 TH/MM3 (0-0.2); BASOPHIL % 0.5 % (0.0-2.0); EOSINOPHIL # 0.3 TH/MM3 (0-0.4); EOSINOPHIL % 1.7 % (0.0-4.0); HEMATOCRIT 35.4 % (39.0-51.0); LYMPH % 11.7 % (9.0-44.0); MEAN CELL VOLUME 84.4 FL (80.0-100.0); MEAN CORPUSCULAR HEMOGLOBIN 28.1 PG (27.0-34.0); MEAN CORPUSCULAR HGB CONC 33.2 % (32.0-36.0); MONO % 18.5 % (0.0-8.0); NEUT % 67.6 % (16.0-70.0); PLATELET COUNT 343 TH/MM3 (150-450)
[2017-07-16 02:32] LABS: BLOOD, URINE NEG (NEG); COMMENT (UR) CATH-CULT NOT IND; CULTURE IF INDICATED CATH CULTURE NOT IND; GLUCOSE,URINE NEG (NEG); HEMO FLAGS AUTO DIFF; KETONE, URINE NEG (NEG); MUCUS URINE FEW /lpf (OCC); NITRITE,URINE NEG (NEG); URINE COLOR YELLOW (YELLW/STRAW)
--- NOTE | 2017-07-16 02:44 | RADRPT ---
EXAM DATE/TIME: 07/16/2017 02:16 [facility] COMPARISON: No previous studies available for comparison. INDICATIONS : Altered mental status. RADIATION DOSE: 47.46 CTDIvol (mGy) MEDICAL HISTORY : Non-responsive. SURGICAL HISTORY : Non-responsive. ENCOUNTER: Initial ACUITY: 1 day PAIN SCALE: Non-responsive LOCATION: cranial TECHNIQUE: Multiple contiguous axial images were obtained of the head. Using automated exposure control and adj ustment of the mA and/or kV according to patient size, radiation dose was kept as low as reasonably a chievable to obtain optimal diagnostic quality images. DICOM format image data is available electro nically for review and comparison. FINDINGS: The examination is abnormal demonstrating severe ventriculomegaly and severe cortical atrophy with pr ominence of the sulci and basal cisterns. There is also significant hypodensity in the visualized wh ite matter. No evidence of acute blood products. No midline shift. The posterior fossa, there is m oderately severe atrophy of the cerebellum. Wide windows for bony detail demonstrate the calvarium t o be intact. CONCLUSION: Markedly abnormal scan demonstrating severe atrophy of the supratentorial brain and moderate atrophy of the cerebellum. Abdoulaye Gu MD on July 16, 2017 at 2:41 Board Certified Radiologist. This report was verified electronically.
[2017-07-16 02:47] LABS: ALT (GPT) 38 U/L (12-78); ANION GAP 7 MEQ/L (5-15); AST (GOT) 17 U/L (15-37); BICARBONATE 27.2 MEQ/L (21.0-32.0); BLOOD UREA NITROGEN 18 MG/DL (7-18); CHLORIDE 102 MEQ/L (98-107); GLOMERULAR FILTRATION RATE 165 ML/MIN (>89); POTASSIUM 3.7 MEQ/L (3.5-5.1); SODIUM (NA) 136 MEQ/L (136-145)
--- NOTE | 2017-07-16 02:47 | RADRPT ---
EXAM DATE/TIME: 07/16/2017 02:26 [facility] COMPARISON: CHEST SINGLE AP, April 09, 2017, 16:50. INDICATIONS : Shortness of breath. MEDICAL HISTORY : Unobtainable. SURGICAL HISTORY : Tracheostomy. ENCOUNTER: Initial ACUITY: 1 day PAIN SCORE: Non-responsive. LOCATION: chest FINDINGS: Frontal view of the chest demonstrates lobar consolidation medial left lower lung with loss of deline ation of the left hemidiaphragm. There is elevation of the right hemidiaphragm. No infiltrate seen in the right lung. The heart is normal size. Tracheostomy in good position. CONCLUSION: Left lower lobe consolidation. Abdoulaye Gu MD on July 16, 2017 at 2:45 Board Certified Radiologist. This report was verified electronically.
[2017-07-16 02:57] LABS: ALKALINE PHOSPHATASE 98 U/L (45-117); TOTAL BILIRUBIN ADULT 0.4 MG/DL (0.2-1.0)
[2017-07-16] MEDS ORDERED: CEFEPIME INJ 1,000 MG in SODIUM CHLORIDE 0.9% INJ 100 ML IV ONE (03:00)
[2017-07-16] MEDS ORDERED: AZITHROMYCIN INJ 500 MG in SODIUM CHLOR 0.9% 250 ML INJ 250 ML IV ONE (03:00)
[2017-07-16 03:10] LABS: APTT (PATIENT) 51.7 SEC (24.3-30.1); INTERNATIONAL NORMALIZED RATIO 3.6 RATIO; PROTHROMBIN TIME - PATIENT 41.5 SEC (9.8-11.6)
[2017-07-16 03:11] LABS: BANDS 17 % (0-6); BASOPHILS 1 % (0-2); EOSINOPHILS 2 % (0-4); NEUTROPHIL # MANUAL DIFF 11.1 TH/MM3 (1.8-7.7); POLYS (SEG NEUTROPHILS) 48 % (16-70); SCAN/DIFF FINAL DIFF MANUAL; WBC DIFF SAMPLE 100
[2017-07-16 03:12] LABS: PLATELET ESTIMATE SMEAR NORMAL (NORMAL); PLATELET MORPHOLOGY NORMAL (NORMAL); TOXIC GRANULATION 1+ (NORMAL); TOXIC VACUOLATION PRESENT (NONE SEEN)
[2017-07-16] MEDS ORDERED: SODIUM CHLORIDE 0.9% FLUSH 10 ML FLUSH IV FLUSH PRN (03:45)
[2017-07-16] MEDS ORDERED: MAGNESIUM HYDROXIDE SUSP 30 ML CUP PO PRN (03:45)
[2017-07-16] MEDS ORDERED: Vancomycin Consult Pharmacy 1 EA OTHER SCH (03:45)
[2017-07-16] MEDS ORDERED: BISACODYL 10 MG SUPP RECTAL PRN (03:45)
[2017-07-16] MEDS ORDERED: MORPHINE SULFATE 2 MG/ML INJ IV PRN (03:45)
[2017-07-16] MEDS ORDERED: SENNOSIDES 8.6 MG TAB PO PRN (03:45)
[2017-07-16] MEDS ORDERED: LACTULOSE SYRUP 20 GM/30 ML CUP PO PRN (03:45)
[2017-07-16] MEDS ORDERED: ONDANSETRON HCL 4 MG/2 ML VIAL IVP PRN (03:45)
[2017-07-16] MEDS: SODIUM CHLOR 0.9% 1000 ML INJ 1,000 ML IV SCH ×3 (03:55→23:49)
--- NOTE | 2017-07-16 04:10 | HHI.HP ---
HPI Service [facility] Primary Care Physician Luis Brady MD Admission Diagnosis Sepsis, Pneumonia, AMS Diagnoses: (1) Sepsis Diagnosis: Principal (2) PNA (pneumonia) Diagnosis: Principal (3) Anoxic brain injury Diagnosis: Principal (4) Chronic anticoagulation Diagnosis: Principal Travel History International Travel<30 Days: No Contact w/Intl Traveler <30 Da: No Traveled to Known Affected Are: No History of Present Illness This is a 46-year-old male with a PMH of Anoxic Brain Injury, s/p Trach/PEG, h/ o DVT on Coumadin and HTN who was sent to the ER by SNF secondary to change in behavior. Per report, pt normally able to track movement at baseline, however noted by staff to have fixed gaze, not tracking. Unable to obtain history from patient secondary to anoxic brain injury, nonverbal at baseline. On arrival, BP 98/61, HR 1:15, O2 sat 97% on 3L Trach Collar, Afebrile. WBC 17, bands 17%. Chemistry unremarkable. Lactic Acid 1.6. INR 3.6. UA negative. CT Head with severe atrophy, no acute findings. CXR with left lower lobe consolidation. S/p Blood/Sputum Culture, Zithro/Cefepime in ER. Review of Systems Except as stated in HPI: all other systems reviewed are Neg ROS: 14 point review of systems otherwise negative. Past Family Social History Past Medical History PMH: Anoxic Brain Injury, s/p Trach/PEG, h/o DVT on Coumadin and HTN Past Surgical History PAST SURGICAL HISTORY: Tracheostomy, PEG tube Allergies: Coded Allergies: lactose (Unverified Allergy, Severe, 04/13/17) Family History PAST FAMILY HISTORY: Reviewed. No h/o DM or CAD Social History PAST SOCIAL HISTORY: Negative for alcohol, tobacco or drugs. Physical Exam Vital Signs Vital Signs Date Time Temp Pulse Resp B/P (MAP) Pulse Ox O2 Delivery O2 Flow Rate FiO2 07/16/17 03:46 99 21 07/16/17 03:40 99 14 99/64 (76) Room Air 07/16/17 01:48 98 Trach Collar 3.00 07/16/17 01:44 97 Trach Collar 3.00 07/16/17 01:38 98.5 115 16 98/61 (73) Physical Exam PE: GENERAL: Middle-aged black male in no acute distress, +anoxic brain injury at baseline HEENT: PERRLA, EOMI. No scleral icterus or conjunctival pallor. No lid lag or facial droop. Trach in place. CARDIOVASCULAR: Regular rate and rhythm. No obvious murmurs to auscultation. No chest tenderness to palpation. RESPIRATORY: No obvious rhonchi or wheezing. Clear to auscultation. Breath sounds equal bilaterally. GASTROINTESTINAL: Abdomen soft, non-tender, nondistended. BS normal. PEG Tube in place. MUSCULOSKELETAL: Extremities without clubbing, cyanosis, or edema. No obvious deformities. Bilateral upper and lower ext contractures NEUROLOGICAL: Awake, alert and oriented x4. No focal neurologic deficits. Moving both upper and lower extremities spontaneously. Laboratory Laboratory Tests Test 07/16/17 02:10 07/16/17 02:40 White Blood Count 17.0 Red Blood Count 4.20 Hemoglobin 11.8 Hematocrit 35.4 Mean Corpuscular Volume 84.4 Mean Corpuscular Hemoglobin 28.1 Mean Corpuscular Hemoglobin Concent 33.2 Red Cell Distribution Width 15.0 Platelet Count 343 Mean Platelet Volume 7.3 Neutrophils (%) (Auto) 67.6 Lymphocytes (%) (Auto) 11.7 Monocytes (%) (Auto) 18.5 Eosinophils (%) (Auto) 1.7 Basophils (%) (Auto) 0.5 Neutrophils # (Auto) 11.4 Lymphocytes # (Auto) 2.0 Monocytes # (Auto) 3.1 Eosinophils # (Auto) 0.3 Basophils # (Auto) 0.1 CBC Comment AUTO DIFF Differential Total Cells Counted 100 Neutrophils % (Manual) 48 Band Neutrophils % 17 Lymphocytes % 18 Monocytes % 14 Eosinophils % 2 Basophils % 1 Neutrophils # (Manual) 11.1 Differential Comment FINAL DIFF MANUAL Toxic Granulation 1+ Toxic Vacuolation PRESENT Platelet Estimate NORMAL Platelet Morphology Comment NORMAL Urine Color YELLOW Urine Turbidity CLEAR Urine pH 7.0 Urine Specific [place] 1.020 Urine Protein TRACE Urine Glucose (UA) NEG Urine Ketones NEG Urine Occult Blood NEG Urine Nitrite NEG Urine Bilirubin NEG Urine Urobilinogen 2.0 Urine Leukocyte Esterase NEG Urine RBC 4 Urine WBC 1 Urine Mucus FEW Microscopic Urinalysis Comment CATH-CULT NOT IND Blood Urea Nitrogen 18 Creatinine 0.64 Random Glucose 104 Total Protein 7.5 Albumin 2.3 Calcium Level 8.1 Alkaline Phosphatase 98 Aspartate Amino Transf (AST/SGOT) 17 Alanine Aminotransferase (ALT/SGPT) 38 Total Bilirubin 0.4 Sodium Level 136 Potassium Level 3.7 Chloride Level 102 Carbon Dioxide Level 27.2 Anion Gap 7 Estimat Glomerular Filtration Rate 165 Lactic Acid Level 1.6 Ammonia LESS THAN 10 Thyroid Stimulating Hormone 3rd Gen 1.990 Prothrombin Time 41.5 Prothromb Time International Ratio 3.6 Activated Partial Thromboplast Time 51.7 Date/Time Source Procedure Growth Status 07/16/17 02:15 Blood Peripheral Aerobic Blood Culture Pending Received 07/16/17 02:15 Blood Peripheral Anaerobic Blood Culture Pending Received 07/16/17 02:10 Nasal Washing Influenza Types A,B Antigen (JOHNNIE) - Final NEGATIVE FOR FLU A AND B ANTIGEN.... Complete Result Diagram: 07/16/1720907/16/17209 Caprini VTE Risk Assessment Caprini VTE Risk Assessment: Mod/High Risk (score >= 2) Caprini Risk Assessment Model Point Value = 1 Point Value = 2 Point Value = 3 Point Value = 5 Age 41-60 Minor surgery BMI > 25 kg/m2 Swollen legs Varicose veins or History of unexplained or recurrent spontaneous Oral contraceptives or hormone replacement Sepsis (< 1 month) Serious lung disease, including pneumonia (< 1 month) Abnormal pulmonary function Acute myocardial infarction Congestive heart failure (< 1 month) History of inflammatory bowel disease Medical patient at bed rest Age 61-74 Arthroscopic surgery Major open surgery (> 45 min) Laparoscopic surgery (> 45 min) Malignancy Confined to bed (> 72 hours) Immobilizing plaster cast Central venous access Age >= 75 History of VTE Family history of VTE Factor V Leiden Prothrombin [id number] Lupus anticoagulant Anticardiolipin antibodies Elevated serum homocysteine Heparin-induced thrombocytopenia Other congenital or acquired thrombophilia Stroke (< 1 month) Elective arthroplasty Hip, pelvis, or leg fracture Acute spinal cord injury (< 1 month) Prophylaxis Regimen Total Risk Factor Score Risk Level Prophylaxis Regimen 0-1 Low Early ambulation 2 Moderate Order ONE of the following: *Sequential Compression Device (SCD) *Heparin 5000 units SQ BID 3-4 Higher Order ONE of the following medications: *Heparin 5000 units SQ TID *Enoxaparin/Lovenox 40 mg SQ daily (WT < 150 kg, CrCl > 30 mL/min) *Enoxaparin/Lovenox 30 mg SQ daily (WT < 150 kg, CrCl > 10-29 mL/min) *Enoxaparin/Lovenox 30 mg SQ BID (WT < 150 kg, CrCl > 30 mL/min) AND/OR *Sequential Compression Device (SCD) 5 or more Highest Order ONE of the following medications: *Heparin 5000 units SQ TID (Preferred with Epidurals) *Enoxaparin/Lovenox 40 mg SQ daily (WT < 150 kg, CrCl > 30 mL/min) *Enoxaparin/Lovenox 30 mg SQ daily (WT < 150 kg, CrCl > 10-29 mL/min) *Enoxaparin/Lovenox 30 mg SQ BID (WT < 150 kg, CrCl > 30 mL/min) AND *Sequential Compression Device (SCD) Assessment and Plan Problem List: (1) Sepsis ICD Code: A41.9 - Sepsis, unspecified organism (2) PNA (pneumonia) ICD Code: J18.9 - Pneumonia, unspecified organism (3) Anoxic brain injury ICD Code: G93.1 - Anoxic brain damage, not elsewhere classified (4) Chronic anticoagulation ICD Code: Z79.01 - long term care social worker (current) use of anticoagulants Assessment and Plan A/P: 1. Sepsis: HR 115, WBC 17, +bandemia 17%, Source-LLL PNA. S/p Blood/Sputum Cultures, s/p Zithro/Cefepime in ER. Follow up cultures, continue IV Abx. 2. PNA: CXR w/ LLL PNA, images reviewed by me. O2 sat 98% on 3L Trach Collar , pulmonary toilet, continue w/ treatment as above. 3. Chronic Anticoagulation: H/o DVT on Coumadin, INR 3.6, recheck INR in am, resume Coumadin if in therapeutic range. 4. Anoxic Brain Injury: Stable. S/p PEG/Trach, resume home tube feeds, on Jevity 1.5 @70ml/hr, resume home medications. 5. DVT Prophylaxis: On Coumadin as above, check INR 6. Social work for d/c planning as needed. 7. Case discussed w/ ER physician at length. Physician Certification 2 Midnight Certification Type: Admission for Inpatient Services Order for Inpatient Services The services are ordered in accordance with Medicare regulations or non- Medicare payer requirements, as applicable. In the case of services not specified as inpatient-only, they are appropriately provided as inpatient services in accordance with the 2-midnight benchmark. Estimated LOS (days): 2 days is the estimated time the patient will need to remain in the hospital, assuming treatment plan goals are met and no additional complications. Post-Hospital Plan: Not yet determined Jesenia Rock MD Jul 16, 2017 04:10
[2017-07-16] MEDS ORDERED: DO NOT ADM ANY ANTICOAGULANT DRUGS OTHER PRN (04:15)
[2017-07-16] MEDS ORDERED: VANCOMYCIN 1,500 MG/NS 500 ML IV ONE ×2 (04:30)
[2017-07-16] MEDS ORDERED: PILL SPLITTER OTHER PRN (04:45)
[2017-07-16] MEDS: carBAMazepine 200 MG TAB G-TUBE SCH ×2 (08:13→20:24)
[2017-07-16] MEDS: DOCUSATE SODIUM 50 MG/SENNA 8.6 MG TAB PO SCH ×2 (08:14→20:23)
[2017-07-16] MEDS: SODIUM CHLORIDE 0.9% FLUSH 10 ML FLUSH IV FLUSH SCH ×2 (08:14→20:24)
[2017-07-16] MEDS: QUEtiapine FUMARATE 25 MG TAB PO SCH ×2 (08:14→20:24)
[2017-07-16] MEDS ORDERED: carBAMazepine 200 MG TAB G-TUBE SCH ×2 (09:00)
[2017-07-16] MEDS ORDERED: WARFARIN SOD 10 MG TAB G-TUBE SCH ×2 (09:00→16:00)
[2017-07-16] MEDS: SCOPOLAMINE 1.5 MG PATCH T-DERMAL SCH (09:21)
[2017-07-16] MEDS ORDERED: NOREPINEPHRINE INJ 4 MG in SODIUM CHLOR 0.9% 250 ML INJ 246 ML IV PRN (10:30)
[2017-07-16] MEDS ORDERED: TERBUTALINE INJ 1 MG/ML AMP SQ PRN (10:30)
--- NOTE | 2017-07-16 10:38 | HHI.PR ---
Subjective Remarks Follow up for sepsis due to pneumonia called by RN due to acute change in BP. BP 70's over 40's At bedside with PRODUCT DEVELOPMENT ENGINEER Objective Vitals Vital Signs Date Time Temp Pulse Resp B/P (MAP) Pulse Ox O2 Delivery O2 Flow Rate FiO2 07/16/17 07:56 98 Trach Collar 6.00 21 07/16/17 07:00 96 07/16/17 06:00 108 19 111/65 (80) 99 07/16/17 05:50 99 Trach Collar 21 07/16/17 05:42 07/16/17 05:30 99 07/16/17 05:30 99.0 109 22 123/70 (87) 99 07/16/17 03:46 99 21 07/16/17 03:40 99 14 99/64 (76) Room Air 07/16/17 01:48 98 Trach Collar 3.00 07/16/17 01:44 97 Trach Collar 3.00 07/16/17 01:38 98.5 115 16 98/61 (73) I/O 07/15/17 07/15/17 07/15/17 07/16/17 07/16/17 07/16/17 07:00 15:00 23:00 07:00 15:00 23:00 Intake Total 935 ml Balance 935 ml Intake IV Total 815 ml Other 120 ml Result Diagram: 07/16/17 0210 07/16/17 0210 Imaging Last Impressions Chest X-Ray 07/16/17 0141 Signed Impressions: Service Date/Time: Sunday, July 16, 2017 02:26 - CONCLUSION: Left lower lobe consolidation. Abdoulaye Gu MD Head CT 07/16/17 0000 Signed Impressions: Service Date/Time: Sunday, July 16, 2017 02:16 - CONCLUSION: Markedly abnormal scan demonstrating severe atrophy of the supratentorial brain and moderate atrophy of the cerebellum. Abdoulaye Gu MD Objective Remarks GENERAL: This is a frail encephalopathic male with multiple contractures, trach and peg CARDIOVASCULAR: Regular rate and rhythm without murmurs, gallops, or rubs. RESPIRATORY:shallow/decreased Breath sounds but bilaterally equal No wheezes, rales, or rhonchi. GASTROINTESTINAL: Abdomen soft, non-tender, nondistended. Normal active bowel sounds MUSCULOSKELETAL:cold extremities Extremities with upper and lower contractures NEURO: lethargic to encephalopathic and well below baseline A/P Problem List: (1) Sepsis ICD Code: A41.9 - Sepsis, unspecified organism Plan: Continue vancomycin and cefepime ID consult pending Severe sepsis with metabolic encephalopathy (2) PNA (pneumonia) ICD Code: J18.9 - Pneumonia, unspecified organism Plan: Healthcare associated, continue vancomycin and cefepime Follow-up cultures (3) Anoxic brain injury ICD Code: G93.1 - Anoxic brain damage, not elsewhere classified Plan: At baseline the patient is in a vegetative state but moves although he is bedbound and incontinent with bowel and bladder requiring tube feeds on tegretol for seizures, level pending seroquel held due to ms changes (4) Chronic anticoagulation ICD Code: Z79.01 - heel brusher (current) use of anticoagulants Plan: Patient has a history of venous thromboembolic events INR 3.6 We'll follow Assessment and Plan I did attempt to call patient's family at the number in chart to advise of condition and review code status, Mary Anne Cruz and Trisha Ulloa, no answer at either number d/w rin CCM consult ID consult pending Discharge Planning From [facility], longterm Kendra Gomez MD Jul 16, 2017 10:38
--- NOTE | 2017-07-16 14:26 | PD.ID.CON ---
History of Present Illness Service ID Consult Requested By Dr Gomez Reason for Consult severe sepsis, PNA Primary Care Physician Luis Brady MD Diagnoses: History of Present Illness Chart was reviewed Pt is non verbal This is a 46-year-old male with Anoxic Brain Injury, s/p Trach/PEG, h/o DVT on Coumadin and HTN was sent to the ER by SNF secondary to change in behavior. Per report, pt normally able to track movement at baseline, however noted by staff to have fixed gaze, not tracking. On arrival,afebrile, slightly hypotensive and tachycardic, WBC 17, bands 17%. Lactic Acid wnl INR therapeutic UA negative. CT Head with severe atrophy, no acute findings. CXR with left lower lobe consolidation. S/p Blood/Sputum Culture, Zithro/Cefepime in ER. Pt was started on cefpeime, vancomycin Flu antigen negative, sputum Gstain, clx pending Head CT w/o acute findings Review of Systems ROS Limitations: Clinical Condition anoxic encephalopathy Past Family Social History Allergies: Coded Allergies: chlorpromazine (Verified Allergy, Severe, Anaphylaxis, 07/16/17) per mom (Mary Anne) lactose (Unverified Allergy, Severe, 04/13/17) Past Medical History Anoxic Brain Injury, h/o DVT on Coumadin HTN Past Surgical History Tracheostomy, PEG tube Active Ordered Medications Medications where reviewed in EMR Antibiotics Include: cefepiim 1 gm q 12 vanco azithro x 1 dose Family History : Reviewed. Non contributory Social History No Tobacco. No ETOH. No Illicit Drugs. resides in snf Physical Exam Vital Signs Vital Signs Date Time Temp Pulse Resp B/P (MAP) Pulse Ox O2 Delivery O2 Flow Rate FiO2 07/16/17 11:36 99.3 108 19 119/70 (86) 100 07/16/17 07:56 98 Trach Collar 6.00 21 07/16/17 07:36 99.3 115 20 105/60 (75) 99 07/16/17 07:00 96 07/16/17 06:00 108 19 111/65 (80) 99 07/16/17 05:50 99 Trach Collar 21 07/16/17 05:42 07/16/17 05:30 99 07/16/17 05:30 99.0 109 22 123/70 (87) 99 07/16/17 03:46 99 21 07/16/17 03:40 99 14 99/64 (76) Room Air 07/16/17 01:48 98 Trach Collar 3.00 07/16/17 01:44 97 Trach Collar 3.00 07/16/17 01:38 98.5 115 16 98/61 (73) Physical Exam CONSTITUTIONAL/GENERAL: This is an adequately nourished patient, in no apparent distress. TUBES/LINES/DRAINS: SKIN: No jaundice, rashes, or lesions. Skin temperature appropriate. Not diaphoretic. HEAD: Atraumatic. Normocephalic. EYES: Pupils equal and round and reactive. No scleral icterus. No injection or drainage. Fundi not examined. ENT: Hearing not assessed . Nose without bleeding or purulent drainage. Oral mucosae without visible erythema, exudates, masses, or lesions. NECK: Trachea midline. Trach in palce with moderate yellowish secretions CARDIOVASCULAR: Regular rate and rhythm without murmurs, gallops, or rubs. No JVD. Peripheral pulses symmetric. RESPIRATORY/CHEST: Symmetric, unlabored respirations. Rhonchi to auscultation. Breath sounds equal bilaterally. No wheezes, rales, or rhonchi. GASTROINTESTINAL: Abdomen soft, non-tender, nondistended. No hepato-splenomegaly , or palpable masses. No guarding. Bowel sounds present. PEG in place - OK GENITOURINARY: Without palpable bladder distension. Maldonado catheter in place with clear yellow urine MUSCULOSKELETAL: Extremities without clubbing, cyanosis, or edema. Contracted No joint tenderness or effusion noted. No calf tenderness. No mottling or clubbing. LYMPHATICS: No palpable cervical or supraclavicular adenopathy. NEUROLOGICAL: Eyes opened , unresopinsive . Contracted, non verbal, not follows commands. Does not move extremities. PSYCHIATRIC: unable to assess Laboratory Laboratory Tests Test 07/16/17 02:10 07/16/17 02:40 07/16/17 11:25 White Blood Count 17.0 Red Blood Count 4.20 Hemoglobin 11.8 Hematocrit 35.4 Mean Corpuscular Volume 84.4 Mean Corpuscular Hemoglobin 28.1 Mean Corpuscular Hemoglobin Concent 33.2 Red Cell Distribution Width 15.0 Platelet Count 343 Mean Platelet Volume 7.3 Neutrophils (%) (Auto) 67.6 Lymphocytes (%) (Auto) 11.7 Monocytes (%) (Auto) 18.5 Eosinophils (%) (Auto) 1.7 Basophils (%) (Auto) 0.5 Neutrophils # (Auto) 11.4 Lymphocytes # (Auto) 2.0 Monocytes # (Auto) 3.1 Eosinophils # (Auto) 0.3 Basophils # (Auto) 0.1 CBC Comment AUTO DIFF Differential Total Cells Counted 100 Neutrophils % (Manual) 48 Band Neutrophils % 17 Lymphocytes % 18 Monocytes % 14 Eosinophils % 2 Basophils % 1 Neutrophils # (Manual) 11.1 Differential Comment FINAL DIFF MANUAL Toxic Granulation 1+ Toxic Vacuolation PRESENT Platelet Estimate NORMAL Platelet Morphology Comment NORMAL Urine Color YELLOW Urine Turbidity CLEAR Urine pH 7.0 Urine Specific [place] 1.020 Urine Protein TRACE Urine Glucose (UA) NEG Urine Ketones NEG Urine Occult Blood NEG Urine Nitrite NEG Urine Bilirubin NEG Urine Urobilinogen 2.0 Urine Leukocyte Esterase NEG Urine RBC 4 Urine WBC 1 Urine Mucus FEW Microscopic Urinalysis Comment CATH-CULT NOT IND Blood Urea Nitrogen 18 Creatinine 0.64 Random Glucose 104 Total Protein 7.5 Albumin 2.3 Calcium Level 8.1 Alkaline Phosphatase 98 Aspartate Amino Transf (AST/SGOT) 17 Alanine Aminotransferase (ALT/SGPT) 38 Total Bilirubin 0.4 Sodium Level 136 Potassium Level 3.7 Chloride Level 102 Carbon Dioxide Level 27.2 Anion Gap 7 Estimat Glomerular Filtration Rate 165 Lactic Acid Level 1.6 1.1 Ammonia LESS THAN 10 Thyroid Stimulating Hormone 3rd Gen 1.990 Prothrombin Time 41.5 Prothromb Time International Ratio 3.6 Activated Partial Thromboplast Time 51.7 Date/Time Source Procedure Growth Status 07/16/17 02:15 Blood Peripheral Aerobic Blood Culture Pending Received 07/16/17 02:15 Blood Peripheral Anaerobic Blood Culture Pending Received 07/16/17 02:10 Nasal Washing Influenza Types A,B Antigen (JOHNNIE) - Final NEGATIVE FOR FLU A AND B ANTIGEN.... Complete Result Diagram: 07/16/17 0210 07/16/17 0210 Imaging Last Impressions Chest X-Ray 07/16/17 0141 Signed Impressions: Service Date/Time: Sunday, July 16, 2017 02:26 - CONCLUSION: Left lower lobe consolidation. Abdoulaye Gu MD Head CT 07/16/17 0000 Signed Impressions: Service Date/Time: Sunday, July 16, 2017 02:16 - CONCLUSION: Markedly abnormal scan demonstrating severe atrophy of the supratentorial brain and moderate atrophy of the cerebellum. Abdoulaye Gu MD Assessment and Plan Assessment and Plan Anoxic encephalopathy LLL PNA cont current abx - inxcrease dose of cefepime fu sputum and blood clx Rere Underwood MD Jul 16, 2017 14:26
[2017-07-16] MEDS ORDERED: WARFARIN SOD 1 MG TAB G-TUBE SCH (16:00)
[2017-07-16] MEDS ORDERED: WARFARIN SOD 7.5 MG TAB G-TUBE SCH (16:00)
--- NOTE | 2017-07-16 16:28 | EKG ---
Date Performed: 07/16/2017 Time Performed: 01:53:32 PTAGE: 46 years EKG: SINUS TACHYCARDIA OTHERWISE WITHIN NORMAL LIMITS Since previous tracing, no significant max nge noted ABNORMAL RHYTHM ECG PREVIOUS TRACING : 03/19/2004 20.20 DOCTOR: Quique Falk Interpretating Date/Time 07/16/2017 16:27:40
--- NOTE | 2017-07-16 16:44 | PD.CONS ---
[facility] Service Critical Care Medicine Consult Requested By Dr. Gomez Reason for Consult Recommendations for management of severe sepsis Primary Care Physician Luis Brady MD History of Present Illness This is a 46-year-old male with a PMH of Anoxic Brain Injury, s/p Trach/PEG, h/ o DVT on Coumadin and HTN who was sent to the ER by SNF secondary to change in behavior. Per report, pt normally able to track movement at baseline, however noted by staff to have fixed gaze, not tracking. Unable to obtain history from patient secondary to anoxic brain injury, nonverbal at baseline. On arrival, BP 98/61, HR 1:15, O2 sat 97% on 3L Trach Collar, Afebrile. WBC 17, bands 17%. Chemistry unremarkable. Lactic Acid 1.6. INR 3.6. UA negative. CT Head with severe atrophy, no acute findings. CXR with left lower lobe consolidation. S/p Blood/Sputum Culture, Zithro/Cefepime in ER. Review of Systems ROS Limitations: Clinical Condition, Altered Mental Status Past Family Social History Allergies: Coded Allergies: chlorpromazine (Verified Allergy, Severe, Anaphylaxis, 07/16/17) per mom (Mary Anne) lactose (Unverified Allergy, Severe, 04/13/17) Past Medical History Anoxic Brain Injury s/p Trach/PEG h/o DVT on Coumadin HTN Past Surgical History Tracheostomy PEG tube Reported Medications Seroquel (Quetiapine Fumarate) 25 Mg Tab 25 Mg PO BID Tizanidine (Tizanidine HCl) 4 Mg Tab 4 Mg PO DAILY Cetirizine Allergy Childrens Liq (Cetirizine HCl) 5 Mg/5 Ml Soln 5 Mg PO DAILY Transderm-Scop (Scopolamine) 1 Mg/3 Days Dis 1.5 Mg Q3D Tegretol (Carbamazepine) 200 Mg Tab 300 Mg G-TUBE BID Tegretol (Carbamazepine) 200 Mg Tab 200 Mg G-TUBE BID Coumadin (Warfarin) 10 Mg Tab 8.5 Mg G-TUBE DAILY Active Ordered Medications See MAR Family History reviewed in the chart and found to be noncontributory to his acute illness. Social History Negative for alcohol, tobacco or drugs. Physical Exam Vital Signs Vital Signs Date Time Temp Pulse Resp B/P (MAP) Pulse Ox O2 Delivery O2 Flow Rate FiO2 07/16/17 11:36 99.3 108 19 119/70 (86) 100 07/16/17 07:56 98 Trach Collar 6.00 21 07/16/17 07:36 99.3 115 20 105/60 (75) 99 07/16/17 07:00 96 07/16/17 06:00 108 19 111/65 (80) 99 07/16/17 05:50 99 Trach Collar 21 07/16/17 05:42 07/16/17 05:30 99 07/16/17 05:30 99.0 109 22 123/70 (87) 99 07/16/17 03:46 99 21 07/16/17 03:40 99 14 99/64 (76) Room Air 07/16/17 01:48 98 Trach Collar 3.00 07/16/17 01:44 97 Trach Collar 3.00 07/16/17 01:38 98.5 115 16 98/61 (73) Physical Exam gen: middle-aged male, contracted, lying in bed, minimally responsive. heent: nc. at. perrl. mucous membranes moist. neck: trachea midline. old trach without purulent drainage. chest: equal chest rise. on ATC. unlabored. cv: tachycardic rate of 107 on my eval. sinus rhythm by telemetry. bp 117/60 on my eval. abd: soft, nontender, nondistended. PEG tube in place, site without erythema or purulent drainage. no guarding. extr: contracted. warm and well-perfused. neuro: withdraws to pain. per documented reports, near neurologic baseline. does not track for me. Laboratory Laboratory Tests Test 07/16/17 02:10 07/16/17 02:40 07/16/17 11:25 White Blood Count 17.0 Red Blood Count 4.20 Hemoglobin 11.8 Hematocrit 35.4 Mean Corpuscular Volume 84.4 Mean Corpuscular Hemoglobin 28.1 Mean Corpuscular Hemoglobin Concent 33.2 Red Cell Distribution Width 15.0 Platelet Count 343 Mean Platelet Volume 7.3 Neutrophils (%) (Auto) 67.6 Lymphocytes (%) (Auto) 11.7 Monocytes (%) (Auto) 18.5 Eosinophils (%) (Auto) 1.7 Basophils (%) (Auto) 0.5 Neutrophils # (Auto) 11.4 Lymphocytes # (Auto) 2.0 Monocytes # (Auto) 3.1 Eosinophils # (Auto) 0.3 Basophils # (Auto) 0.1 CBC Comment AUTO DIFF Differential Total Cells Counted 100 Neutrophils % (Manual) 48 Band Neutrophils % 17 Lymphocytes % 18 Monocytes % 14 Eosinophils % 2 Basophils % 1 Neutrophils # (Manual) 11.1 Differential Comment FINAL DIFF MANUAL Toxic Granulation 1+ Toxic Vacuolation PRESENT Platelet Estimate NORMAL Platelet Morphology Comment NORMAL Urine Color YELLOW Urine Turbidity CLEAR Urine pH 7.0 Urine Specific Sawyer 1.020 Urine Protein TRACE Urine Glucose (UA) NEG Urine Ketones NEG Urine Occult Blood NEG Urine Nitrite NEG Urine Bilirubin NEG Urine Urobilinogen 2.0 Urine Leukocyte Esterase NEG Urine RBC 4 Urine WBC 1 Urine Mucus FEW Microscopic Urinalysis Comment CATH-CULT NOT IND Blood Urea Nitrogen 18 Creatinine 0.64 Random Glucose 104 Total Protein 7.5 Albumin 2.3 Calcium Level 8.1 Alkaline Phosphatase 98 Aspartate Amino Transf (AST/SGOT) 17 Alanine Aminotransferase (ALT/SGPT) 38 Total Bilirubin 0.4 Sodium Level 136 Potassium Level 3.7 Chloride Level 102 Carbon Dioxide Level 27.2 Anion Gap 7 Estimat Glomerular Filtration Rate 165 Lactic Acid Level 1.6 1.1 Ammonia LESS THAN 10 Thyroid Stimulating Hormone 3rd Gen 1.990 Prothrombin Time 41.5 Prothromb Time International Ratio 3.6 Activated Partial Thromboplast Time 51.7 Date/Time Source Procedure Growth Status 07/16/17 02:15 Blood Peripheral Aerobic Blood Culture Pending Received 07/16/17 02:15 Blood Peripheral Anaerobic Blood Culture Pending Received 07/16/17 02:10 Nasal Washing Influenza Types A,B Antigen (JOHNNIE) - Final NEGATIVE FOR FLU A AND B ANTIGEN.... Complete Result Diagram: 07/16/17 0210 07/16/17 0210 Imaging Last Impressions Chest X-Ray 07/16/17 0141 Signed Impressions: Service Date/Time: Sunday, July 16, 2017 02:26 - CONCLUSION: Left lower lobe consolidation. Abdoulaye Gu MD Head CT 07/16/17 0000 Signed Impressions: Service Date/Time: Sunday, July 16, 2017 02:16 - CONCLUSION: Markedly abnormal scan demonstrating severe atrophy of the supratentorial brain and moderate atrophy of the cerebellum. Abdoulaye Gu MD Assessment and Plan Assessment and Plan Assessment: 46yM with anoxic brain injury and persistent vegetative state who presents with severe sepsis secondary to healthcare associated pneumonia acquired in his outside hospital facility. He has been volume responsive and now is status post 4 L crystalloid resuscitation with normal signs of end-organ perfusion. lactate remains normal. Agree with choice of abx Vanc/Cefepime. Agree with continued ivf resuscitation. does not need vasopressors at this time as he is still fluid responsive and has met end-points of organ resuscitation. Active Problems: Hypoxic-Ischemic Encephalopathy Healthcare Associated Left Lower Lobe Pneumonia Severe Sepsis Recommendations: - continue vanc/cefepime - vanc trough target: 15 - 20. - f/u sputum culture, blood cultures - continue mivf - if persistently hypotensive despite fluid resuscitation, would consider vasopressors, but clinically improving after volume. - wean o2 for spo2 > 90%. currently on ATC with no signs of ongoing hypoxia. Will admit to ICU and monitor overnight. If he continues to clinically improve, would transition back to floor tomorrow. Critical care medicine will sign-off. please re-consult as needed. Kedar Olivares MD Jul 16, 2017 16:44
[2017-07-16] MEDS: VANCOMYCIN 1,000 MG/NS 250 ML IV SCH ×2 (17:23)
[2017-07-16] MEDS ORDERED: CEFEPIME INJ 1,000 MG in SODIUM CHLORIDE 0.9% INJ 100 ML IV SCH (19:00)
[2017-07-17] VITALS (11 sets, daily range): BP systolic 120–125; BP diastolic 70–77; PULSE 90–108; RESP 12–25; TEMP 97.6–99.8; O2SAT 96–100
[2017-07-17] MEDS: CEFEPIME INJ 2,000 MG in SODIUM CHLORIDE 0.9% INJ 100 ML IV SCH ×3 (02:43→20:11)
[2017-07-17] MEDS ORDERED: CEFEPIME INJ 2,000 MG in SODIUM CHLORIDE 0.9% INJ 100 ML IV SCH ×2 (03:00→06:00)
[2017-07-17] MEDS ORDERED: SODIUM CHLOR 0.9% 250 ML INJ 250 ML ONE (04:03)
[2017-07-17] MEDS: VANCOMYCIN 1,000 MG/NS 250 ML IV SCH ×4 (04:04→17:31)
[2017-07-17 05:33] LABS: AUTOMATED NEUTROPHIL # 8.5 TH/MM3 (1.8-7.7); BASOPHIL # 0.1 TH/MM3 (0-0.2); BASOPHIL % 0.5 % (0.0-2.0); EOSINOPHIL # 0.2 TH/MM3 (0-0.4); EOSINOPHIL % 2.1 % (0.0-4.0); HEMATOCRIT 33.7 % (39.0-51.0); HEMO FLAGS DIFF FINAL; LYMPH % 13.4 % (9.0-44.0); LYMPHOCYTE # 1.5 TH/MM3 (1.0-4.8); MEAN CELL VOLUME 85.9 FL (80.0-100.0); MEAN CORPUSCULAR HGB CONC 32.6 % (32.0-36.0); MONO % 9.4 % (0.0-8.0); NEUT % 74.6 % (16.0-70.0); PLATELET COUNT 328 TH/MM3 (150-450); RED BLOOD COUNT 3.92 MIL/MM3 (4.50-5.90); RED CELL DISTRIBUTION WIDTH 15.1 % (11.6-17.2); WHITE BLOOD COUNT 11.4 TH/MM3 (4.0-11.0)
[2017-07-17 05:35] LABS: INTERNATIONAL NORMALIZED RATIO 2.5 RATIO; PROTHROMBIN TIME - PATIENT 29.3 SEC (9.8-11.6)
[2017-07-17 05:45] LABS: ALT (GPT) 30 U/L (12-78); ANION GAP 10 MEQ/L (5-15); AST (GOT) 15 U/L (15-37); BICARBONATE 21.1 MEQ/L (21.0-32.0); CHLORIDE 109 MEQ/L (98-107); GLOMERULAR FILTRATION RATE 275 ML/MIN (>89); POTASSIUM 4.1 MEQ/L (3.5-5.1); SODIUM (NA) 140 MEQ/L (136-145)
[2017-07-17 05:47] LABS: ALKALINE PHOSPHATASE 97 U/L (45-117); TOTAL BILIRUBIN ADULT 0.3 MG/DL (0.2-1.0)
[2017-07-17 05:53] LABS: BLOOD UREA NITROGEN 9 MG/DL (7-18)
[2017-07-17] MEDS: SODIUM CHLORIDE 0.9% FLUSH 10 ML FLUSH IV FLUSH SCH ×2 (08:09→20:12)
[2017-07-17] MEDS: QUEtiapine FUMARATE 25 MG TAB PO SCH ×2 (08:09→20:12)
[2017-07-17] MEDS: DOCUSATE SODIUM 50 MG/SENNA 8.6 MG TAB PO SCH ×2 (08:09→20:12)
[2017-07-17] MEDS: carBAMazepine 200 MG TAB G-TUBE SCH ×2 (08:09→20:11)
[2017-07-17] MEDS: SODIUM CHLOR 0.9% 1000 ML INJ 1,000 ML IV SCH ×3 (09:33→21:27)
[2017-07-17] MEDS: SCOPOLAMINE 1.5 MG PATCH T-DERMAL SCH (14:11)
[2017-07-17] MEDS: MORPHINE SULFATE 2 MG/ML INJ IV PRN (14:37)
[2017-07-17] MEDS ORDERED: PHARMACY ORDERED LAB ONE (16:45)
--- NOTE | 2017-07-17 23:58 | HHI.CCPN ---
Subjective Remarks/Hospital Course This is a 46-year-old male with a PMH of Anoxic Brain Injury, s/p Trach/PEG, h/ o DVT on Coumadin and HTN who was sent to the ER by SNF secondary to change in behavior. Per report, pt normally able to track movement at baseline, however noted by staff to have fixed gaze, not tracking. Unable to obtain history from patient secondary to anoxic brain injury, nonverbal at baseline. On arrival, BP 98/61, HR 1:15, O2 sat 97% on 3L Trach Collar, Afebrile. WBC 17, bands 17%. Chemistry unremarkable. Lactic Acid 1.6. INR 3.6. UA negative. CT Head with severe atrophy, no acute findings. CXR with left lower lobe consolidation. S/p Blood/Sputum Culture, Zithro/Cefepime in ER. 07/17: Stable hemodynamic and respiratory status after fluid. Protects airway well. Objective Vital Signs Date Time Temp Pulse Resp B/P (MAP) Pulse Ox O2 Delivery O2 Flow Rate FiO2 07/17/17 22:00 108 07/17/17 21:06 96 Trach Collar 21 07/17/17 20:00 98.8 24 121/77 (92) 07/17/17 07:58 6.00 Intake and Output 07/17/17 07/17/17 07/18/17 08:00 16:00 00:00 Intake Total 1004 ml 2720 ml Output Total 2050 ml 1950 ml Balance -1046 ml 770 ml Result Diagram: 07/17/17 0443 07/17/17 0443 Other Results Microbiology Date/Time Source Procedure Growth Status 07/16/17 02:10 Nasal Washing Influenza Types A,B Antigen (JOHNNIE) - Final NEGATIVE FOR FLU A AND B ANTIGEN.... Complete Imaging Last Impressions Chest X-Ray 07/16/17 0141 Signed Impressions: Service Date/Time: Sunday, July 16, 2017 02:26 - CONCLUSION: Left lower lobe consolidation. Abdoulaye Gu MD Head CT 07/16/17 0000 Signed Impressions: Service Date/Time: Sunday, July 16, 2017 02:16 - CONCLUSION: Markedly abnormal scan demonstrating severe atrophy of the supratentorial brain and moderate atrophy of the cerebellum. Abdoulaye Gu MD Objective Remarks gen: middle-aged male, with contractures, minimally responsive. heent: nc. at. perrl. mucous membranes moist. neck: trachea midline. chronic trach without purulent drainage. chest: equal chest rise. on ATC. unlabored. comfortable pattern. cv: tachycardic rate of 192. sinus rhythm by telemetry. abd: soft, nontender, nondistended. PEG tube in place, site without erythema or purulent drainage. no guarding. extr: contracted. warm and well-perfused. neuro: withdraws to pain. per documented reports, near neurologic baseline. does not track with eyes. A/P Assessment and Plan Assessment: 46yM with anoxic brain injury and persistent vegetative state who presents with severe sepsis secondary to healthcare associated pneumonia acquired in his outside hospital facility. He has been volume responsive and now is status post 4 L crystalloid resuscitation with normal signs of end-organ perfusion. lactate remains normal. Agree with choice of abx Vanc/Cefepime. Agree with continued ivf resuscitation. does not need vasopressors at this time as has responded to fluid. Active Problems: Hypoxic-Ischemic Encephalopathy Healthcare Associated Left Lower Lobe Pneumonia Severe Sepsis Recommendations: - continue vanc/cefepime - vanc trough target: 15 - 20. - f/u sputum culture, blood cultures - continue mivf - wean o2 for spo2 > 90%. currently on ATC with no signs of ongoing hypoxia. Will admit to ICU and monitor overnight. If he continues to clinically improve, would transition back to floor tomorrow. Critical care medicine will see while he is in the unit. Jose Miguel Brannon MD Jul 17, 2017 23:58
[2017-07-18] VITALS (9 sets, daily range): BP systolic 107–144; BP diastolic 65–84; PULSE 86–109; RESP 18–26; TEMP 98.1–99.6; O2SAT 96–100
[2017-07-18] MEDS: CEFEPIME INJ 2,000 MG in SODIUM CHLORIDE 0.9% INJ 100 ML IV SCH ×3 (03:00→18:08)
[2017-07-18] MEDS: SODIUM CHLOR 0.9% 1000 ML INJ 1,000 ML IV SCH (04:14)
[2017-07-18] MEDS ORDERED: VANCOMYCIN INJ 1,250 MG in SODIUM CHLOR 0.9% 250 ML INJ 250 ML IV SCH (05:00)
[2017-07-18] MEDS: SODIUM CHLORIDE 0.9% FLUSH 10 ML FLUSH IV FLUSH SCH ×2 (08:53→20:29)
[2017-07-18] MEDS: QUEtiapine FUMARATE 25 MG TAB PO SCH ×2 (08:53→20:28)
[2017-07-18] MEDS: DOCUSATE SODIUM 50 MG/SENNA 8.6 MG TAB PO SCH ×2 (08:53→20:28)
[2017-07-18] MEDS: MORPHINE SULFATE 2 MG/ML INJ IV PRN ×2 (08:59→23:22)
[2017-07-18] MEDS: carBAMazepine 200 MG TAB G-TUBE SCH ×2 (10:43→20:29)
--- NOTE | 2017-07-18 10:58 | HHI.CCPN ---
Subjective Remarks/Hospital Course This is a 46-year-old male with a PMH of Anoxic Brain Injury, s/p Trach/PEG, h/ o DVT on Coumadin and HTN who was sent to the ER by SNF secondary to change in behavior. Per report, pt normally able to track movement at baseline, however noted by staff to have fixed gaze, not tracking. Unable to obtain history from patient secondary to anoxic brain injury, nonverbal at baseline. On arrival, BP 98/61, HR 1:15, O2 sat 97% on 3L Trach Collar, Afebrile. WBC 17, bands 17%. Chemistry unremarkable. Lactic Acid 1.6. INR 3.6. UA negative. CT Head with severe atrophy, no acute findings. CXR with left lower lobe consolidation. S/p Blood/Sputum Culture, Zithro/Cefepime in ER. 07/17: Stable hemodynamic and respiratory status after fluid. Protects airway well. 07/18: no change in neuro exam. sputum growing GNRs. stable hemodynamics. on 21 % fio2 ATC. Objective Vital Signs Date Time Temp Pulse Resp B/P (MAP) Pulse Ox O2 Delivery O2 Flow Rate FiO2 07/18/17 08:07 100 Trach Collar 5.00 21 07/18/17 08:00 99.6 109 24 144/78 (100) Intake and Output 07/18/17 07/18/17 07/19/17 08:00 16:00 00:00 Intake Total 1463 ml Output Total 2800 ml Balance -1337 ml Result Diagram: 07/17/17 0443 07/17/17 0443 Other Results Microbiology Date/Time Source Procedure Growth Status 07/16/17 02:10 Nasal Washing Influenza Types A,B Antigen (JOHNNIE) - Final NEGATIVE FOR FLU A AND B ANTIGEN.... Complete Imaging Last Impressions Chest X-Ray 07/16/17 0141 Signed Impressions: Service Date/Time: Sunday, July 16, 2017 02:26 - CONCLUSION: Left lower lobe consolidation. Abdoulaye Gu MD Head CT 07/16/17 0000 Signed Impressions: Service Date/Time: Sunday, July 16, 2017 02:16 - CONCLUSION: Markedly abnormal scan demonstrating severe atrophy of the supratentorial brain and moderate atrophy of the cerebellum. Abdoulaye Gu MD Objective Remarks gen: middle-aged male, with contractures, minimally responsive. heent: nc. at. perrl. mucous membranes moist. neck: trachea midline. chronic trach without purulent drainage. chest: equal chest rise. on ATC. unlabored. comfortable pattern. cv: normal rate, 80s. sinus rhythm by telemetry. abd: soft, nontender, nondistended. PEG tube in place, site without erythema or purulent drainage. no guarding. extr: contracted. warm and well-perfused. neuro: withdraws to pain. per documented reports, near neurologic baseline. does not track with eyes. A/P Assessment and Plan Assessment: 46yM with anoxic brain injury and persistent vegetative state who presents with severe sepsis secondary to healthcare associated pneumonia acquired in his outside hospital facility. hemodynamics improved. sputum growing GNRs. will d/c Vancomycin and leave on Cefepime. if sputum speciates, can discharge back to SNF. will stop mivf and start early low-dose diuresis for optimal volume status. Active Problems: Hypoxic-Ischemic Encephalopathy Healthcare Associated Left Lower Lobe Pneumonia Severe Sepsis - resolving. Recommendations: - d/c vanc - continue cefepime. - f/u sputum culture - d/c mivf - lasix 10mg iv x 1. - on room air ATC. - transfer to floor. - can go back to SNF tomorrow once sputum culture speciates and they can continue full 7 day course of abx as outpatient. Kedar Olivares MD Jul 18, 2017 10:58
[2017-07-18] MEDS ORDERED: FUROSEMIDE 20 MG/2 ML VIAL IV PUSH ONE (11:15)
[2017-07-18 12:19] LABS: AUTOMATED NEUTROPHIL # 3.4 TH/MM3 (1.8-7.7); BASOPHIL % 0.7 % (0.0-2.0); EOSINOPHIL # 0.3 TH/MM3 (0-0.4); EOSINOPHIL % 5.4 % (0.0-4.0); HEMATOCRIT 30.2 % (39.0-51.0); HEMO FLAGS DIFF FINAL; LYMPH % 24.4 % (9.0-44.0); LYMPHOCYTE # 1.4 TH/MM3 (1.0-4.8); MEAN CORPUSCULAR HEMOGLOBIN 28.3 PG (27.0-34.0); MEAN CORPUSCULAR HGB CONC 33.3 % (32.0-36.0); MONO % 10.8 % (0.0-8.0); NEUT % 58.7 % (16.0-70.0); PLATELET COUNT 334 TH/MM3 (150-450); RED BLOOD COUNT 3.55 MIL/MM3 (4.50-5.90); RED CELL DISTRIBUTION WIDTH 14.9 % (11.6-17.2); WHITE BLOOD COUNT 5.7 TH/MM3 (4.0-11.0)
[2017-07-18] MEDS: oxyCODONE HCL ORAL CONC 5 MG/0.25 ML SYRINGE PO PRN ×2 (12:44→18:08)
--- NOTE | 2017-07-18 15:06 | HHI.IDPN ---
Subjective Subjective Remarks doing well remains afebrile growing GNB in sputum Antibiotics cefepime Allergies: Coded Allergies: chlorpromazine (Verified Allergy, Severe, Anaphylaxis, 07/16/17) per mom (Mary Anne) lactose (Unverified Allergy, Severe, 04/13/17) Objective . Vital Signs Date Time Temp Pulse Resp B/P (MAP) Pulse Ox O2 Delivery O2 Flow Rate FiO2 07/18/17 12:00 98.9 90 25 117/72 (87) 100 07/18/17 08:07 100 Trach Collar 5.00 21 07/18/17 08:00 99.6 109 24 144/78 (100) 100 07/18/17 07:00 100 Trach Collar 21 07/18/17 04:00 86 07/18/17 04:00 98.3 86 18 111/72 (85) 97 07/18/17 02:00 88 07/18/17 00:00 86 07/18/17 00:00 98.2 86 24 107/65 (79) 98 07/17/17 22:00 108 07/17/17 21:06 96 Trach Collar 21 07/17/17 20:00 98.8 102 24 121/77 (92) 98 07/17/17 20:00 102 07/17/17 19:00 96 Trach Collar 21 07/17/17 16:00 98.2 100 25 125/75 (92) 97 07/18/17 07/18/17 07/19/17 15:00 23:00 07:00 Intake Total 560 ml Balance 560 ml Intake IV Total 560 ml . Laboratory Tests Test 07/17/17 04:43 07/18/17 11:43 White Blood Count 11.4 TH/MM3 5.7 TH/MM3 Red Blood Count 3.92 MIL/MM3 3.55 MIL/MM3 Hemoglobin 11.0 GM/DL 10.0 GM/DL Hematocrit 33.7 % 30.2 % Mean Corpuscular Volume 85.9 FL 85.0 FL Mean Corpuscular Hemoglobin 28.0 PG 28.3 PG Mean Corpuscular Hemoglobin Concent 32.6 % 33.3 % Red Cell Distribution Width 15.1 % 14.9 % Platelet Count 328 TH/MM3 334 TH/MM3 Mean Platelet Volume 7.5 FL 7.8 FL Neutrophils (%) (Auto) 74.6 % 58.7 % Lymphocytes (%) (Auto) 13.4 % 24.4 % Monocytes (%) (Auto) 9.4 % 10.8 % Eosinophils (%) (Auto) 2.1 % 5.4 % Basophils (%) (Auto) 0.5 % 0.7 % Neutrophils # (Auto) 8.5 TH/MM3 3.4 TH/MM3 Lymphocytes # (Auto) 1.5 TH/MM3 1.4 TH/MM3 Monocytes # (Auto) 1.1 TH/MM3 0.6 TH/MM3 Eosinophils # (Auto) 0.2 TH/MM3 0.3 TH/MM3 Basophils # (Auto) 0.1 TH/MM3 0.0 TH/MM3 CBC Comment DIFF FINAL DIFF FINAL Differential Comment Laboratory Tests Test 07/17/17 04:43 Blood Urea Nitrogen 9 MG/DL Creatinine 0.41 MG/DL Random Glucose 107 MG/DL Total Protein 6.5 GM/DL Albumin 2.2 GM/DL Calcium Level 7.7 MG/DL Alkaline Phosphatase 97 U/L Aspartate Amino Transf (AST/SGOT) 15 U/L Alanine Aminotransferase (ALT/SGPT) 30 U/L Total Bilirubin 0.3 MG/DL Sodium Level 140 MEQ/L Potassium Level 4.1 MEQ/L Chloride Level 109 MEQ/L Carbon Dioxide Level 21.1 MEQ/L Anion Gap 10 MEQ/L Estimat Glomerular Filtration Rate 275 ML/MIN Microbiology Date/Time Source Procedure Growth Status 07/16/17 02:15 Blood Peripheral Aerobic Blood Culture - Preliminary NO GROWTH IN 2 DAYS Resulted 07/16/17 02:15 Blood Peripheral Anaerobic Blood Culture - Preliminary NO GROWTH IN 2 DAYS Resulted 07/16/17 02:10 Blood Peripheral Aerobic Blood Culture - Preliminary NO GROWTH IN 2 DAYS Resulted 07/16/17 02:10 Blood Peripheral Anaerobic Blood Culture - Preliminary NO GROWTH IN 2 DAYS Resulted 07/16/17 02:10 Nasal Washing Influenza Types A,B Antigen (JOHNNIE) - Final NEGATIVE FOR FLU A AND B ANTIGEN.... Complete 07/16/17 00:00 Sputum Endotracheal Gram Stain - Final Resulted 07/16/17 00:00 Sputum Culture - Preliminary Proteus Mirabilis Morganella Morganii Pseudomonas Aeruginosa Resulted Imaging Last Impressions Chest X-Ray 07/16/17 0141 Signed Impressions: Service Date/Time: Sunday, July 16, 2017 02:26 - CONCLUSION: Left lower lobe consolidation. Abdoulaye Gu MD Head CT 07/16/17 0000 Signed Impressions: Service Date/Time: Sunday, July 16, 2017 02:16 - CONCLUSION: Markedly abnormal scan demonstrating severe atrophy of the supratentorial brain and moderate atrophy of the cerebellum. Abdoulaye Gu MD Physical Exam CONSTITUTIONAL/GENERAL: This is an adequately nourished patient, in no apparent distress. TUBES/LINES/DRAINS: SKIN: No jaundice, rashes, or lesions. Skin temperature appropriate. Not diaphoretic. EYES: Pupils equal and round and reactive. No scleral icterus. No injection or drainage. Fundi not examined. NECK: Trach in palce with normal amount of secretions CARDIOVASCULAR: Regular rate and rhythm without murmurs, gallops, or rubs. No JVD. Peripheral pulses symmetric. RESPIRATORY/CHEST: Symmetric, unlabored respirations. Very few rhonchi to auscultation. Breath sounds equal bilaterally. No wheezes, rales, or rhonchi. GASTROINTESTINAL: Abdomen soft, non-tender, nondistended GENITOURINARY: Without palpable bladder distension. Condom catheter in place with clear yellow urine MUSCULOSKELETAL: Extremities without clubbing, cyanosis, or edema. Contracted No joint tenderness or effusion noted. No calf tenderness. No mottling or clubbing. NEUROLOGICAL: Eyes closed , unresopinsive . Contracted, non verbal, not follows commands. Does not move extremities. PSYCHIATRIC: unable to assess Assessment & Plan Remarks Anoxic encephalopathy LLL PNA, polimicrobial: PSAE (P sensittivies, Proteus and Morganella in clx) cont cefpeime x 7 days total fu sputum and blood clx untill final dw Rere Wilkes MD Jul 18, 2017 15:06
[2017-07-19] VITALS: BP 143/91; PULSE 150; RESP 40; TEMP 98; O2SAT 99
[2017-07-19] MEDS: oxyCODONE HCL ORAL CONC 5 MG/0.25 ML SYRINGE PO PRN (00:06)
[2017-07-19] MEDS: CEFEPIME INJ 2,000 MG in SODIUM CHLORIDE 0.9% INJ 100 ML IV SCH ×2 (02:58→11:01)
[2017-07-19 04:00] VITALS: BP 112/69; PULSE 95; RESP 21; TEMP 97.8; O2SAT 98
[2017-07-19] MEDS ORDERED: PHARMACY ORDERED LAB ONE (04:45)
[2017-07-19 08:00] VITALS: BP 121/76; PULSE 96; RESP 25; TEMP 99; O2SAT 99
[2017-07-19 08:30] VITALS: O2SAT 96
[2017-07-19] MEDS: SODIUM CHLORIDE 0.9% FLUSH 10 ML FLUSH IV FLUSH SCH (09:00)
[2017-07-19] MEDS: DOCUSATE SODIUM 50 MG/SENNA 8.6 MG TAB PO SCH (09:03)
[2017-07-19] MEDS: carBAMazepine 200 MG TAB G-TUBE SCH (09:03)
[2017-07-19] MEDS: QUEtiapine FUMARATE 25 MG TAB PO SCH (09:03)
[2017-07-19] MEDS: SCOPOLAMINE 1.5 MG PATCH T-DERMAL SCH (09:04)
--- NOTE | 2017-07-19 10:40 | HHI.CCPN ---
Subjective Remarks/Hospital Course This is a 46-year-old male with a PMH of Anoxic Brain Injury, s/p Trach/PEG, h/ o DVT on Coumadin and HTN who was sent to the ER by SNF secondary to change in behavior. Per report, pt normally able to track movement at baseline, however noted by staff to have fixed gaze, not tracking. Unable to obtain history from patient secondary to anoxic brain injury, nonverbal at baseline. On arrival, BP 98/61, HR 1:15, O2 sat 97% on 3L Trach Collar, Afebrile. WBC 17, bands 17%. Chemistry unremarkable. Lactic Acid 1.6. INR 3.6. UA negative. CT Head with severe atrophy, no acute findings. CXR with left lower lobe consolidation. S/p Blood/Sputum Culture, Zithro/Cefepime in ER. 07/17: Stable hemodynamic and respiratory status after fluid. Protects airway well. 07/18: no change in neuro exam. sputum growing GNRs. stable hemodynamics. on 21 % fio2 ATC. 07/19: clinically stable. sensitivities back on sputum, on cefepime which is appropriate monotherapy. plan for full 7 day course (07/17 - 07/23). stable for discharge back to SNF. Objective Vital Signs Date Time Temp Pulse Resp B/P (MAP) Pulse Ox O2 Delivery O2 Flow Rate FiO2 07/19/17 08:30 96 T-piece 21 07/19/17 04:00 97.8 95 21 112/69 (83) 07/18/17 08:07 5.00 Intake and Output 07/19/17 07/19/17 07/20/17 08:00 16:00 00:00 Intake Total 1276 ml Output Total 1500 ml Balance -224 ml Result Diagram: 07/18/17 1143 07/17/17 0443 Imaging Last Impressions Chest X-Ray 07/16/17 0141 Signed Impressions: Service Date/Time: Sunday, July 16, 2017 02:26 - CONCLUSION: Left lower lobe consolidation. Abdoulaye Gu MD Head CT 07/16/17 0000 Signed Impressions: Service Date/Time: Sunday, July 16, 2017 02:16 - CONCLUSION: Markedly abnormal scan demonstrating severe atrophy of the supratentorial brain and moderate atrophy of the cerebellum. Abdoulaye Gu MD Objective Remarks gen: middle-aged male, with contractures, minimally responsive. heent: nc. at. perrl. mucous membranes moist. neck: trachea midline. chronic trach without purulent drainage. chest: equal chest rise. on ATC. unlabored. comfortable pattern. cv: normal rate, 80s. sinus rhythm by telemetry. abd: soft, nontender, nondistended. PEG tube in place, site without erythema or purulent drainage. no guarding. extr: contracted. warm and well-perfused. neuro: withdraws to pain. per documented reports, near neurologic baseline. does not track with eyes. A/P Assessment and Plan Assessment: 46yM with anoxic brain injury and persistent vegetative state who presents with severe sepsis secondary to healthcare associated pneumonia acquired in his outside hospital facility. hemodynamics improved. sputum growing multiple gram negative bacteria, all sensitive to Cefepime. Plan for 7 days of iv cefepime therapy (07/17 - 07/23). stable for transfer back to SNF. Active Problems: Hypoxic-Ischemic Encephalopathy - chronic and stable. Healthcare Associated Left Lower Lobe Pneumonia Severe Sepsis - resolved. Recommendations: - continue cefepime 2gm iv q8hr for total of 7 days 07/17 - 07/23. - on room air ATC. - d/c back to SNF. stable and at baseline. Kedar Olivares MD Jul 19, 2017 10:40
[2017-07-19] MEDS ORDERED: CARB200T G-TUBE (11:46)
--- NOTE | 2017-07-19 11:50 | HHI.FF ---
Infusion Therapy Location of Infusion Therapy: [facility] Infusion Therapy Order Patient Information Appointment Date: Jul 19, 2017 Patient Weight 72.1 kg Diagnosis: Coded Allergies: chlorpromazine (Verified Allergy, Severe, Anaphylaxis, 07/16/17) per mom (Mary Anne) lactose (Unverified Allergy, Severe, 04/13/17) Administer Medication Cefepime 2 grams IV q 8 hours Start Treatment: Jul 19, 2017 Stop Treatment: Jul 23, 2017 Additional Information Venous access: Implanted Port Additional Instructions [x] Peripheral flush and dressing changes per protocol [x] Implanted port and central boiler reliner: * Implanted port: 10 ml Normal Saline followed by 5 ml Heparin 100 units/ml Heparin flush after each use and monthly to maintain. [] May leave port accessed during therapy. [] May leave peripheral site accessed for duration of therapy. [x] If patient has SOB or respiratory distress, check oxygen saturation. If less than 90% or clinical signs of respiratory distress, administer oxygen at 2 L/min. via nasal cannula and notify physician. [x] Anaphylaxis/Reaction orders: * Stop infusion. * Keep IV line open with saline flush. * Notify physician. * Monitor vital signs every 15 minutes until symptoms resolve. * Check Oxygen saturation; Oxygen at 2 L/min. via nasal cannula if less than 90% or clinical signs of respiratory distress. * Administer diphenhydramine (Benadryl) 25 mg IV STAT, (unless patient has received as pre-med). May repeat once, if necessary. * Solu-Cortef 250 mg IVP over 30-60 seconds, use 100 mg vials for each dissolution. * Epinephrine (1mg/1 ml) 0.3 mg subcutaneously or IVP now with any signs of respiratory distress. * Check with physician for new additional pre-med orders if patient is re- challenged or re-treated. [x] May remove PICC line when treatment complete, after confirming with Physician. [x] If the patient is admitted to the hospital, the ED, or transferred via [facility] , complete transfer form including medication reconciliation order sheet. Laboratory Tests Weekly Labs: Gael Hare Jul 19, 2017 11:50
[2017-07-19] MEDS ORDERED: EPIN1INJ21 IV PUSH (11:59)
[2017-07-19] MEDS ORDERED: CEFE2INJ9 IV (11:59)
[2017-07-19] MEDS ORDERED: EPIN1INJ21 SQ (11:59)
[2017-07-19] MEDS ORDERED: SOLU250I IV PUSH (11:59)
== END 2017-07-19 11:58 | DRG 871 ==
LOC: NEPE 01:30 → NEDA 03:25 → N03B 05:35
PROVIDERS: ADMIT Hospitalist; ATTEND Hospitalist
DX: A41.9 Sepsis, unspecified organism (principal); J18.9 Pneumonia, unspecified organism; G93.1 Anoxic brain damage, not elsewhere classified; R40.3 Persistent vegetative state; Z93.0 Tracheostomy status; Z93.1 Gastrostomy status; R65.20 Severe sepsis without septic shock; Y95 Nosocomial condition; Z79.01 Long term (current) use of anticoagulants; Z86.718 Personal history of other venous thrombosis and embolism; I10 Essential (primary) hypertension; M24.50 Contracture, unspecified joint; Z74.01 Bed confinement status
CPT/HCPCS: 70450; 71010; 80053; 80202; 81001; 82140; 83605; 84443; 85007; 85025; 85027; 85610; 85730; 87040; 87070; 87077; 87186; 87205; 87641; 87804; 93005; 96361; 96374; J0456; J0692; J1940; J2270; J3370; J7030; J7040; J7050

== ENCOUNTER 2018-05-08 19:34 | Inpatient (IN) ==
[2018-05-08] MEDS ORDERED: Sod Chloride 0.9% Inj 1,000 ML IV.SIG ONE (19:45)
[2018-05-08] MEDS ORDERED: Vancomycin Inj 1 GM/200 ML PIGGYBACK IV.SIG ONE (19:45)
[2018-05-08] MEDS ORDERED: Piperacil/Tazo 3.375 GM Premix 50 ML IV.SIG ONE (19:45)
--- NOTE | 2018-05-08 19:50 | ED ---
HPI General Chief complaint: Altered Mental Status Stated complaint: unresponsive/evac Time Seen by Provider: 05/08/18 19:45 Limitations: altered mental status History of Present Illness HPI narrative: The patient is a 47 year old male who presents to the [facility] emergency department with a history of altered mentation noted by the fpc staff prior to arrival. The patient was noted to be hypotensive with a blood pressure systolic in the 50s. The patient otherwise was noted to have a heart rate in the 90s, O2 saturation on facemask of in the mid 90s. The patient has a baseline mentation of being bedbound with a diminished GCS related to a history of intracranial hemorrhage. The patient is nonverbal. The patient has a feeding tube in place. The patient according to the fpc will open his eyes and track with his vision when he is spoken to. The patient was not opening his eyes and responding to voice like he normally would , thus ambulance services were called. It is unclear whether the patient has had any other new symptoms. The patient on arrival is again nonverbal, therefore the patient's past medical history is obtained from reviewing the electronic medical record and the fpc record. Related Data Home Medications Medication Instructions Recorded Confirmed albuterol sulfate 1.25 mg INHALATION Q4H PRN 05/08/18 05/08/18 amino acids-protein hydrolys 30 ml FEEDING TUBE TID PRN 05/08/18 05/08/18 [Pro-Stat AWC] ascorbic acid (vitamin C) 500 mg PO Q12H 05/08/18 05/08/18 carbamazepine [Tegretol] 100 mg FEEDING TUBE TID 05/08/18 05/08/18 furosemide 10 mg FEEDING TUBE DAILY 05/08/18 05/08/18 hyoscyamine sulfate [Levsin] 0.25 mg FEEDING TUBE QID PRN 05/08/18 05/08/18 omeprazole 40 mg FEEDING TUBE DAILY 05/08/18 05/08/18 potassium chloride 10 meq PO DAILY 05/08/18 05/08/18 rivaroxaban [Xarelto] 10 mg G-TUBE DAILY 05/08/18 05/08/18 scopolamine base 1 patch TRANSDERMAL Q3D 05/08/18 05/08/18 tizanidine 4 mg PO DAILY 05/08/18 05/08/18 Allergies Allergy/AdvReac Type Severity Reaction Status Date / Time chlorpromazine Allergy Severe Anaphylaxis Verified 05/08/18 21:12 lactose Allergy Severe Nausea Verified 05/08/18 21:12 Review of Systems ROS Unobtainable ROS Unobtainable: unobtainable due to mental status (Due to the patient's history of being nonverbal from prior intravascular hemorrhage) PMF[facility] History History Provided By: Medical Record Medical History Medical History Allergic rhinitis (Acute) Chronic respiratory failure (Acute) Constipation (Acute) 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) Convulsions (Acute) DVT (deep venous thrombosis) (Acute) Depressive disorder (Acute) Disturbances of salivary secretion (Acute) Gastrostomy tube in place (Acute) Port-A-Cath in place (Acute) Pulmonary embolism (Acute) Unspecified psychosis (Acute) Vegetative state (Acute) Surgical History Surgical History Hx of tracheostomy (Acute) PEG (percutaneous endoscopic gastrostomy) status (Acute) Family History Family History Other No significant family history Social History Social History Substance History: No History of Abuse Second Hand Smoke Exposure: No Smoking Status: Never smoker How Often Do You Have a Drink Containing Alcohol: Never Recent Travel in [facility] within the Last 8 Weeks: No Recent Out of Country Travel within the Last 8 Weeks: No Exam Const Nutritional Appearance: thin Orientation: other (The patient arrives with a decreased level of consciousness. The patient's eyes are closed. The patient has disconjugate gaze when opening his eyes.) HENIA Head: normocephalic and atraumatic Nose: no nasal discharge and no epistaxis Mouth: other Throat: posterior oropharynx normal and uvula midline Eyes Sclera: normal sclerae Pupils: PERRL Neck Neck: no meningeal signs, trachea midline and no JVD Resp Effort & Inspection: no use of accessory muscles Auscultation: crackles (Right lower lung base.) on the right and other ( Decreased breath sounds in the right lower lung base,) Cardio Rate: regular rate Rhythm: regular rhythm Heart Sounds: no gallops, no murmurs and no rubs GI Inspection: non-distended Palpation: soft, no hepatosplenomegaly and nontender Auscultation: normal bowel sounds Other: The patient is noted to have a feeding tube in place in the left upper quadrant of the abdomen that appears to be in good repair without any signs of infection. Back/Spine/Pelvis Back: no CVA tenderness Skin General: dry skin (warm) Neuro Cranial Nerves: other (Patient is noted to have contractures of his upper extremities. The patient is noted to have atrophy of bilateral lower extremities. The patient is apparently bedbound. The patient is nonverbal at baseline. The patient has a decreased level of consciousness impaired to his baseline as normally he does respond to voice by opening his eyes, however currently on arrival with his hypotension he is noted to be less responsive.) Motor: no movement abnormalities noted Extrem General: normal to inspection, no clubbing, no cyanosis and no edema Course Reevaluation(s) Reevaluation #1: The patient on reevaluation had his blood pressure, but after approximately 500 mL of normal saline infused through his [id number] in the left side of his chest, up to 100 systolic. The patient became more awake and alert. The patient's eyes were open and he was tracking with verbal stimulation. The patient was spontaneously moving his lower extremities. Consultations Consultation #1: The patient's case including history, pertinent physical examination findings, and laboratory studies were discussed with Dr. Maki. It was agreed that the patient would be admitted to the media manager's service. Initial Documented Vital Signs Pulse Rate 101 H 05/08/18 19:45 Pulse Oximetry 96 05/08/18 19:45 Last Documented Vital Signs Temperature 98.1 F 05/09/18 16:00 Pulse Rate 99 H 05/09/18 18:00 Respiratory Rate 23 05/09/18 18:00 Blood Pressure 150/76 H 05/09/18 18:00 Pulse Oximetry 100 05/09/18 18:00 Critical Care Time Critical Care Time: Yes Total Critical Care Time: 36 Attestation: Aggregate critical care time was 36 minutes. Time to perform other separately billable procedures was not included in the critical care time. My time did not include minutes spent treating any other patients simultaneously or on activities that did not directly contribute to the patient's treatment. The services I provided to this patient were to treat and/or prevent clinically significant deterioration that could result in: Cardiovascular collapse from sepsis, versus respiratory failure from crystalloid resuscitation, versus respiratory failure from encephalopathy I provided critical care services requiring my management, as noted below: Chart data review, documentation time, medication orders and management, vital sign assessments/reviewing monitor data, ordering and reviewing lab tests, ordering and interpreting/reviewing x-rays and diagnostic studies, care of the patient and discussion of the patient with the admitting physicians. Medical Decision Making MDM Narrative Medical decision making narrative: During the course of the patient's emergency department visit, the patient's history, examination, and differential diagnosis were reviewed with the patient. The patient was placed on a monitor worker with oximetry and frequent blood pressure monitoring. The patient had IV access obtained and blood work sent for analysis. Diagnostic evaluation was started regarding the patient's hypotension and altered mentation. The patient was initially provided normal saline 1 L IV fluid bolus on a pressure bag. The patient was started on broad-spectrum antibiotic coverage of Zosyn and vancomycin for presumed sepsis as a cause of his hypotension. The patient's diagnostic evaluation is remarkable for a white count of 10, hemoglobin 10, platelets within normal limits at 470 with a monocytosis of 9.1, PT 12.3, INR 1.2, PTT 28.9. Chemistries remarkable for a calcium of 7.9, initial lactic acid is 1.9, AST 48, ALT 81, alk phos 125, ammonia level within normal limits, initial set of cardiac enzymes are negative, albumin 2.4. Urinalysis shows rare sediment, moderate bacteria, 2 urobilinogen. A chest x- ray shows mild inspiratory mid inspiratory exam with no definitive evidence of pneumonia. The patient was admitted to the hospital in critical condition and sent to a bed under the care of the media manager's service. Medical Screen Exam Complete: Yes Emergency Medical Condition: Yes Differential Diagnosis Differential Diagnosis: Sepsis due to pneumonia, versus tracheitis, versus urinary tract infection, versus dehydration, versus electrolyte derangements, versus intracranial mass, versus intracranial hemorrhage, versus intracranial ischemia Medical Records Medical records reviewed: Yes I reviewed the patient's medical records. Lab Data Lab results reviewed: Yes I reviewed the patient's lab results. Result diagrams: 05/08/18 20:00 05/08/18 20:00 Lab Results 05/08/18 05/08/18 05/08/18 Range/Units 20:00 20:00 20:00 WBC 10.0 (4.0-11.0) th/mm3 RBC 3.90 L (4.50-5.90) mil/mm3 Hgb 10.0 L (13.0-17.0) gm/dL Hct 31.3 L (39.0-51.0) % MCV 80.2 (80.0-100.0) fL MCH 25.7 L (27.0-34.0) pg MCHC 32.0 (32.0-36.0) % RDW 16.1 (11.6-17.2) % Plt Count 470 H (150-450) th/mm3 MPV 7.8 (7.0-11.0) fL Neut % (Auto) 61.1 (16.0-70.0) % Lymph % (Auto) 23.7 (9.0-44.0) % [place] % (Auto) 9.1 H (0.0-8.0) % Eos % (Auto) 5.3 H (0.0-4.0) % Baso % (Auto) 0.8 (0.0-2.0) % Neut # (Auto) 6.1 (1.8-7.7) th/mm3 Lymph # (Auto) 2.4 (1.0-4.8) th/mm3 [place] # (Auto) 0.9 (0.0-0.9) th/mm3 Eos # (Auto) 0.5 H (0.0-0.4) th/mm3 Baso # (Auto) 0.1 (0.0-0.2) th/mm3 WBC Differential . Differential Comment Auto diff final PT 12.3 H (9.8-11.6) sec INR 1.2 Ratio APTT 28.9 (24.3-30.1) sec Sodium 136 (136-145) meq/L Potassium 4.1 (3.5-5.1) meq/L Chloride 101 (98-107) meq/L Carbon Dioxide 27.2 (21.0-32.0) meq/L Anion Gap 8 (5-15) meq/L BUN 13 (7-18) mg/dL Creatinine 0.74 (0.60-1.30) mg/dL Estimated GFR Greater than 89 (>89) mL/min Random Glucose 103 (74-106) mg/dL Lactic Acid (0.4-2.0) mmol/L Calcium 7.9 L (8.5-10.1) mg/dL Phosphorus (2.5-4.9) mg/dL Magnesium 2.0 (1.5-2.5) mg/dL Total Bilirubin 0.2 (0.2-1.0) mg/dL AST 48 H (15-37) U/L ALT 81 H (12-78) U/L Alkaline Phosphatase 125 H (45-117) U/L Ammonia (11-32) mcmol/L Total Creatine Kinase 70 (39-308) U/L Troponin I Less than 0.02 L (0.02-0.05) ng/mL Total Protein 7.7 (6.4-8.2) g/dL Albumin 2.4 L (3.4-5.0) g/dL Lipase 109 (73-393) U/L Urine Color (Yellw/Straw) Urine Clarity (Clear) Urine pH (5.0-8.5) Ur Specific [place] (1.002-1.035) Urine Protein (Neg-Trace) mg/dL Urine Glucose (UA) (Negative) mg/dL Urine Ketones (Negative) mg/dL Urine Occult Blood (Negative) Urine Nitrate (Negative) Urine Bilirubin (Negative) Urine Urobilinogen (Less than 2) mg/dL Ur Leukocyte Esterase (Negative) Urine RBC (0-3) /hpf Urine WBC (0-5) /hpf Ur Squamous Epith Cells (0-5) /hpf Amorphous Sediment (None) /hpf Urine Bacteria (None) /hpf Hyaline Casts (0-3) /lpf Micro UA Comment Ur Microscopic Review Urine Culture Comments Nasal Screen MRSA (PCR) (Negative) Urine Opiates Screen (Neg) Ur Barbiturates Screen (Neg) Carbamazepine (4.0-12.0) mcg/mL Ur Amphetamines Screen (Neg) U Benzodiazepines Scrn (Neg) Urine Cocaine Screen (Neg) U Cannabinoids Screen (Neg) 05/08/18 05/08/18 05/08/18 Range/Units 20:00 20:00 20:00 WBC (4.0-11.0) th/mm3 RBC (4.50-5.90) mil/mm3 Hgb (13.0-17.0) gm/dL Hct (39.0-51.0) % MCV (80.0-100.0) fL MCH (27.0-34.0) pg MCHC (32.0-36.0) % RDW (11.6-17.2) % Plt Count (150-450) th/mm3 MPV (7.0-11.0) fL Neut % (Auto) (16.0-70.0) % Lymph % (Auto) (9.0-44.0) % [place] % (Auto) (0.0-8.0) % Eos % (Auto) (0.0-4.0) % Baso % (Auto) (0.0-2.0) % Neut # (Auto) (1.8-7.7) th/mm3 Lymph # (Auto) (1.0-4.8) th/mm3 [place] # (Auto) (0.0-0.9) th/mm3 Eos # (Auto) (0.0-0.4) th/mm3 Baso # (Auto) (0.0-0.2) th/mm3 WBC Differential Differential Comment PT (9.8-11.6) sec INR Ratio APTT (24.3-30.1) sec Sodium (136-145) meq/L Potassium (3.5-5.1) meq/L Chloride (98-107) meq/L Carbon Dioxide (21.0-32.0) meq/L Anion Gap (5-15) meq/L BUN (7-18) mg/dL Creatinine (0.60-1.30) mg/dL Estimated GFR (>89) mL/min Random Glucose (74-106) mg/dL Lactic Acid 1.9 (0.4-2.0) mmol/L Calcium (8.5-10.1) mg/dL Phosphorus (2.5-4.9) mg/dL Magnesium (1.5-2.5) mg/dL Total Bilirubin (0.2-1.0) mg/dL AST (15-37) U/L ALT (12-78) U/L Alkaline Phosphatase (45-117) U/L Ammonia 15 (11-32) mcmol/L Total Creatine Kinase (39-308) U/L Troponin I (0.02-0.05) ng/mL Total Protein (6.4-8.2) g/dL Albumin (3.4-5.0) g/dL Lipase (73-393) U/L Urine Color (Yellw/Straw) Urine Clarity (Clear) Urine pH (5.0-8.5) Ur Specific [place] (1.002-1.035) Urine Protein (Neg-Trace) mg/dL Urine Glucose (UA) (Negative) mg/dL Urine Ketones (Negative) mg/dL Urine Occult Blood (Negative) Urine Nitrate (Negative) Urine Bilirubin (Negative) Urine Urobilinogen (Less than 2) mg/dL Ur Leukocyte Esterase (Negative) Urine RBC (0-3) /hpf Urine WBC (0-5) /hpf Ur Squamous Epith Cells (0-5) /hpf Amorphous Sediment (None) /hpf Urine Bacteria (None) /hpf Hyaline Casts (0-3) /lpf Micro UA Comment Ur Microscopic Review Urine Culture Comments Nasal Screen MRSA (PCR) (Negative) Urine Opiates Screen (Neg) Ur Barbiturates Screen (Neg) Carbamazepine 10.1 (4.0-12.0) mcg/mL Ur Amphetamines Screen (Neg) U Benzodiazepines Scrn (Neg) Urine Cocaine Screen (Neg) U Cannabinoids Screen (Neg) 05/08/18 05/08/18 05/09/18 Range/Units 20:20 20:20 01:20 WBC (4.0-11.0) th/mm3 RBC (4.50-5.90) mil/mm3 Hgb (13.0-17.0) gm/dL Hct (39.0-51.0) % MCV (80.0-100.0) fL MCH (27.0-34.0) pg MCHC (32.0-36.0) % RDW (11.6-17.2) % Plt Count (150-450) th/mm3 MPV (7.0-11.0) fL Neut % (Auto) (16.0-70.0) % Lymph % (Auto) (9.0-44.0) % [place] % (Auto) (0.0-8.0) % Eos % (Auto) (0.0-4.0) % Baso % (Auto) (0.0-2.0) % Neut # (Auto) (1.8-7.7) th/mm3 Lymph # (Auto) (1.0-4.8) th/mm3 [place] # (Auto) (0.0-0.9) th/mm3 Eos # (Auto) (0.0-0.4) th/mm3 Baso # (Auto) (0.0-0.2) th/mm3 WBC Differential Differential Comment PT (9.8-11.6) sec INR Ratio APTT (24.3-30.1) sec Sodium (136-145) meq/L Potassium (3.5-5.1) meq/L Chloride (98-107) meq/L Carbon Dioxide (21.0-32.0) meq/L Anion Gap (5-15) meq/L BUN (7-18) mg/dL Creatinine (0.60-1.30) mg/dL Estimated GFR (>89) mL/min Random Glucose (74-106) mg/dL Lactic Acid (0.4-2.0) mmol/L Calcium (8.5-10.1) mg/dL Phosphorus (2.5-4.9) mg/dL Magnesium (1.5-2.5) mg/dL Total Bilirubin (0.2-1.0) mg/dL AST (15-37) U/L ALT (12-78) U/L Alkaline Phosphatase (45-117) U/L Ammonia (11-32) mcmol/L Total Creatine Kinase (39-308) U/L Troponin I (0.02-0.05) ng/mL Total Protein (6.4-8.2) g/dL Albumin (3.4-5.0) g/dL Lipase (73-393) U/L Urine Color Yellow (Yellw/Straw) Urine Clarity Hazy H (Clear) Urine pH 7.0 (5.0-8.5) Ur Specific [place] 1.011 (1.002-1.035) Urine Protein Negative (Neg-Trace) mg/dL Urine Glucose (UA) Negative (Negative) mg/dL Urine Ketones Negative (Negative) mg/dL Urine Occult Blood Negative (Negative) Urine Nitrate Negative (Negative) Urine Bilirubin Negative (Negative) Urine Urobilinogen 2.0 H (Less than 2) mg/dL Ur Leukocyte Esterase Negative (Negative) Urine RBC 3 (0-3) /hpf Urine WBC 2 (0-5) /hpf Ur Squamous Epith Cells <1 (0-5) /hpf Amorphous Sediment Rare H (None) /hpf Urine Bacteria Moderate H (None) /hpf Hyaline Casts 1 (0-3) /lpf Micro UA Comment Cath-culture ind Ur Microscopic Review Not Reportable Urine Culture Comments Cath-cult indicated Nasal Screen MRSA (PCR) Not detected (Negative) Urine Opiates Screen Neg (Neg) Ur Barbiturates Screen Neg (Neg) Carbamazepine (4.0-12.0) mcg/mL Ur Amphetamines Screen Neg (Neg) U Benzodiazepines Scrn Neg (Neg) Urine Cocaine Screen Neg (Neg) U Cannabinoids Screen Neg (Neg) 05/09/18 05/09/18 Range/Units 03:02 10:56 WBC (4.0-11.0) th/mm3 RBC (4.50-5.90) mil/mm3 Hgb (13.0-17.0) gm/dL Hct (39.0-51.0) % MCV (80.0-100.0) fL MCH (27.0-34.0) pg MCHC (32.0-36.0) % RDW (11.6-17.2) % Plt Count (150-450) th/mm3 MPV (7.0-11.0) fL Neut % (Auto) (16.0-70.0) % Lymph % (Auto) (9.0-44.0) % [place] % (Auto) (0.0-8.0) % Eos % (Auto) (0.0-4.0) % Baso % (Auto) (0.0-2.0) % Neut # (Auto) (1.8-7.7) th/mm3 Lymph # (Auto) (1.0-4.8) th/mm3 [place] # (Auto) (0.0-0.9) th/mm3 Eos # (Auto) (0.0-0.4) th/mm3 Baso # (Auto) (0.0-0.2) th/mm3 WBC Differential Differential Comment PT (9.8-11.6) sec INR Ratio APTT (24.3-30.1) sec Sodium (136-145) meq/L Potassium (3.5-5.1) meq/L Chloride (98-107) meq/L Carbon Dioxide (21.0-32.0) meq/L Anion Gap (5-15) meq/L BUN (7-18) mg/dL Creatinine (0.60-1.30) mg/dL Estimated GFR (>89) mL/min Random Glucose (74-106) mg/dL Lactic Acid (0.4-2.0) mmol/L Calcium (8.5-10.1) mg/dL Phosphorus 3.8 (2.5-4.9) mg/dL Magnesium (1.5-2.5) mg/dL Total Bilirubin (0.2-1.0) mg/dL AST (15-37) U/L ALT (12-78) U/L Alkaline Phosphatase (45-117) U/L Ammonia (11-32) mcmol/L Total Creatine Kinase (39-308) U/L Troponin I Less than 0.02 L Less than 0.02 L (0.02-0.05) ng/mL Total Protein (6.4-8.2) g/dL Albumin (3.4-5.0) g/dL Lipase (73-393) U/L Urine Color (Yellw/Straw) Urine Clarity (Clear) Urine pH (5.0-8.5) Ur Specific [place] (1.002-1.035) Urine Protein (Neg-Trace) mg/dL Urine Glucose (UA) (Negative) mg/dL Urine Ketones (Negative) mg/dL Urine Occult Blood (Negative) Urine Nitrate (Negative) Urine Bilirubin (Negative) Urine Urobilinogen (Less than 2) mg/dL Ur Leukocyte Esterase (Negative) Urine RBC (0-3) /hpf Urine WBC (0-5) /hpf Ur Squamous Epith Cells (0-5) /hpf Amorphous Sediment (None) /hpf Urine Bacteria (None) /hpf Hyaline Casts (0-3) /lpf Micro UA Comment Ur Microscopic Review Urine Culture Comments Nasal Screen MRSA (PCR) (Negative) Urine Opiates Screen (Neg) Ur Barbiturates Screen (Neg) Carbamazepine (4.0-12.0) mcg/mL Ur Amphetamines Screen (Neg) U Benzodiazepines Scrn (Neg) Urine Cocaine Screen (Neg) U Cannabinoids Screen (Neg) Imaging Data Radiologist's impression: Chest X-Ray 05/08/18 19:45 CONCLUSION: Mid inspiratory exam with no definite evidence of pneumonia. Liver Ultrasound 05/09/18 00:00 CONCLUSION: 1. Prominent common bile duct without distention of the gallbladder or intrahepatic biliary dilatation. I appreciate no filling defects to suggest a retained stone or obstructing mass. A better anatomical evaluation of the pancreatic head should be considered utilizing MRI if the patient is able to follow instructions for breath-hold. Alternatively a CT should be considered if the patient cannot follow instructions. 2. Cholelithiasis. 3. Two small hepatic cysts. ECG Data Attestation: I personally reviewed and interpreted this ECG as follows: Interpretation: The patient had a EKG done on arrival that shows a sinus rhythm heart rate of 98, QRS duration is 87 ms, QTC [address] segment elevation. T waves are inverted in V1 and aVL Discharge Plan Discharge Disposition Patient Disposition: 30 Still Patient Discharge Details Diagnosis: Altered mental status, Acute hypotension Physicians Team ED Provider: Sarah Matute Primary Care Provider: Luis Brady Attending Provider: Rivka Maki Other Providers: Quinn Chan Discharge Interventions Interventions: ED Discharge Assessment Last Done: 05/09/18 01:24 Status ED Status: Left Department Discharge Information Discharge Date/Time: 05/09/18 01:28
[2018-05-08] MEDS ORDERED: Vancomycin Inj 1,000 MG in Sodium Chlor 0.9% Inj 250 ML IV.SIG ONE (20:00)
[2018-05-08 20:33] LABS: Baso # (Auto) 0.1 th/mm3 (0.0-0.2); Baso % (Auto) 0.8 % (0.0-2.0); Eos # (Auto) 0.5 th/mm3 (0.0-0.4); Eos % (Auto) 5.3 % (0.0-4.0); Hematocrit 31.3 % (39.0-51.0); Lymph # (Auto) 2.4 th/mm3 (1.0-4.8); Lymph % (Auto) 23.7 % (9.0-44.0); Mean Corpuscular Hemoglobin 25.7 pg (27.0-34.0); Mean Corpuscular Volume 80.2 fL (80.0-100.0); Mean Platelet Volume 7.8 fL (7.0-11.0); Mono # (Auto) 0.9 th/mm3 (0.0-0.9); Mono % (Auto) 9.1 % (0.0-8.0); Neut # (Auto) 6.1 th/mm3 (1.8-7.7); Neut % (Auto) 61.1 % (16.0-70.0); Platelet Count 470 th/mm3 (150-450); Red Cell Distribution Width 16.1 % (11.6-17.2)
[2018-05-08 20:44] LABS: Activated Partial Thrombo Time 28.9 sec (24.3-30.1); INR 1.2 Ratio; Prothrombin Time 12.3 sec (9.8-11.6)
[2018-05-08 20:57] LABS: Albumin 2.4 g/dL (3.4-5.0); Anion Gap 8 meq/L (5-15); Aspartate Aminotransferase 48 U/L (15-37); Blood Urea Nitrogen 13 mg/dL (7-18); Calcium 7.9 mg/dL (8.5-10.1); Carbon Dioxide 27.2 meq/L (21.0-32.0); Chloride 101 meq/L (98-107); Glomerular Filtration Rate Greater Than 89 mL/min (>89); Glucose,Random 103 mg/dL (74-106); Lipase 109 U/L (73-393); Potassium 4.1 meq/L (3.5-5.1); Sodium 136 meq/L (136-145)
[2018-05-08 20:58] LABS: Alanine Aminotransferase 81 U/L (12-78)
[2018-05-08 21:02] LABS: Alkaline Phosphatase 125 U/L (45-117); Total Protein 7.7 g/dL (6.4-8.2)
[2018-05-08 21:08] LABS: Creatine Kinase 70 U/L (39-308)
[2018-05-08 22:01] LABS: Amorphous Sediment,Urine Rare /hpf; Amphetamine Screen,Urine Neg (Neg); Bacteria,Urine Moderate /hpf; Barbiturate Screen,Urine Neg (Neg); Bilirubin,Urine Negative (Negative); Cannabinoid Screen,Urine Neg (Neg); Clarity,Urine Hazy (Clear); Cocaine Screen,Urine Neg (Neg); Color,Urine Yellow (Yellw/Straw); Glucose,Urine (UA) Negative (Negative); Hyaline Casts,Urine 1 /lpf (0-3); Leukocyte Esterase,Urine Negative (Negative); Nitrite,Urine Negative (Negative); Specific Gravity,Urine 1.011 (1.002-1.035); Squamous Epithelial Cell,Urine <1 /hpf (0-5)
[2018-05-08 22:13] LABS: Opiate Screen,Urine Neg (Neg)
[2018-05-09] MEDS ORDERED: Vancomycin Consult Pharmacy OTHER PRN (00:33)
[2018-05-09] MEDS ORDERED: Acetaminophen 325 MG Tablet G-TUBE PRN (00:34)
[2018-05-09] MEDS ORDERED: Bisacodyl 10 MG Supp RECTAL PRN (00:34)
[2018-05-09] MEDS: Scopalamine 1.5 MG Patch T-DERMAL SCH (02:19)
[2018-05-09] MEDS: Piperacil/Tazo 4.5 GM Premix 4.5 GM/100 ML BAG IV.SIG SCH ×4 (03:00→21:04)
[2018-05-09 03:38] LABS: Phosphorus 3.8 mg/dL (2.5-4.9)
[2018-05-09] MEDS ORDERED: Vancomycin Inj 1,250 MG in Sodium Chlor 0.9% Inj 250 ML IV.SIG ONE (08:00)
[2018-05-09] MEDS: Rivaroxaban 10 MG Tablet G-TUBE SCH (08:20)
[2018-05-09] MEDS: Ascorbic Acid 500 MG Tablet PO SCH ×2 (08:21→21:03)
[2018-05-09] MEDS: Senna/Docusate Sodium 8.6/50 MG Tablet PO SCH ×2 (08:21→21:03)
[2018-05-09] MEDS: Vancomycin Inj 1,000 MG in Sodium Chlor 0.9% Inj 250 ML IV.SIG SCH (11:19)
--- NOTE | 2018-05-09 17:13 | ECG ---
Date Performed: 05/08/2018 Time Performed: 19:39:59 PTAGE: 47 years EKG: Sinus rhythm POSSIBLE LEFT ATRIAL ENLARGEMENT When compared to previous tracing, borderline prolonged QT Interval is new. BORDERLINE ECG PREVIOUS TRACING : 07/16/2017 01.53.32 DOCTOR: Cam Matute Interpretating Date/Time 05/09/2018 17:12:49
[2018-05-10] MEDS: Vancomycin Inj 1,000 MG in Sodium Chlor 0.9% Inj 250 ML IV.SIG SCH ×2 (00:15→12:36)
[2018-05-10] MEDS: Piperacil/Tazo 4.5 GM Premix 4.5 GM/100 ML BAG IV.SIG SCH ×4 (03:09→20:03)
[2018-05-10 07:51] LABS: Hematocrit 32.8 % (39.0-51.0); Hemoglobin 10.8 gm/dL (13.0-17.0); Mean Corpuscular HGB Conc 32.9 % (32.0-36.0); Mean Platelet Volume 7.3 fL (7.0-11.0); Platelet Count 414 th/mm3 (150-450); Red Blood Count 4.15 mil/mm3 (4.50-5.90); Red Cell Distribution Width 16.3 % (11.6-17.2); White Blood Count 8.3 th/mm3 (4.0-11.0)
[2018-05-10] MEDS: Ascorbic Acid 500 MG Tablet PO SCH ×2 (07:59→20:03)
[2018-05-10] MEDS: Rivaroxaban 10 MG Tablet G-TUBE SCH (08:00)
[2018-05-10] MEDS: Senna/Docusate Sodium 8.6/50 MG Tablet PO SCH ×2 (08:00→20:03)
[2018-05-10 08:17] LABS: Albumin 2.4 g/dL (3.4-5.0); Anion Gap 7 meq/L (5-15); Aspartate Aminotransferase 38 U/L (15-37); Blood Urea Nitrogen 8 mg/dL (7-18); Calcium 8.4 mg/dL (8.5-10.1); Carbon Dioxide 27.1 meq/L (21.0-32.0); Chloride 106 meq/L (98-107); Glomerular Filtration Rate Greater Than 89 mL/min (>89); Glucose,Random 106 mg/dL (74-106); Potassium 3.8 meq/L (3.5-5.1); Sodium 140 meq/L (136-145)
[2018-05-10 08:18] LABS: Alanine Aminotransferase 71 U/L (12-78)
[2018-05-10 08:21] LABS: Alkaline Phosphatase 121 U/L (45-117); Total Protein 7.6 g/dL (6.4-8.2)
[2018-05-10] MEDS ORDERED: Diatrizoate Meglum/Diatrizoate Sod Liq 9 ML UDC PO ONE (15:30)
[2018-05-11] MEDS: Vancomycin Inj 1,000 MG in Sodium Chlor 0.9% Inj 250 ML IV.SIG SCH ×2 (00:41→12:37)
[2018-05-11] MEDS: Piperacil/Tazo 4.5 GM Premix 4.5 GM/100 ML BAG IV.SIG SCH ×4 (03:51→20:19)
[2018-05-11 05:13] LABS: Alanine Aminotransferase 63 U/L (12-78); Albumin 2.3 g/dL (3.4-5.0); Anion Gap 6 meq/L (5-15); Aspartate Aminotransferase 33 U/L (15-37); Blood Urea Nitrogen 7 mg/dL (7-18); Calcium 8.4 mg/dL (8.5-10.1); Carbon Dioxide 30.2 meq/L (21.0-32.0); Chloride 107 meq/L (98-107); Glomerular Filtration Rate Greater Than 89 mL/min (>89); Glucose,Random 125 mg/dL (74-106); Magnesium 2.4 mg/dL (1.5-2.5); Potassium 3.8 meq/L (3.5-5.1); Sodium 143 meq/L (136-145)
[2018-05-11 05:15] LABS: Alkaline Phosphatase 110 U/L (45-117); Total Protein 7.5 g/dL (6.4-8.2)
[2018-05-11] MEDS: Senna/Docusate Sodium 8.6/50 MG Tablet PO SCH ×2 (09:01→20:19)
[2018-05-11] MEDS: Ascorbic Acid 500 MG Tablet PO SCH ×2 (09:01→20:19)
[2018-05-11] MEDS: Rivaroxaban 10 MG Tablet G-TUBE SCH (09:07)
[2018-05-11] MEDS ORDERED: Atropine Inj 1 MG/10 ML Syringe ONE (10:13)
[2018-05-11] MEDS ORDERED: Atropine Inj 1 MG/ML Vial IV.PUSH PRN (10:28)
[2018-05-11] MEDS ORDERED: Sodium Chlor 0.9% Inj 500 ML IV.SIG ONE (10:57)
--- NOTE | 2018-05-11 11:25 | ECG ---
Date Performed: 05/11/2018 Time Performed: 10:54:35 PTAGE: 47 years EKG: Sinus rhythm POSSIBLE LEFT ATRIAL ENLARGEMENT NONSPECIFIC ST & T-WAVE ABNORMALITY BORDERLINE ECG PREVIOUS TRACING : 05/08/2018 19.39 DOCTOR: Clinton Delgado Interpretating Date/Time 05/11/2018 11:24:54
[2018-05-11 11:36] LABS: ABG Base Excess 1.7 mmol/L (-2-2); ABG PCO2 41 mmHg (38-42); ABG PO2 93 mmHG (61-120)
[2018-05-11] MEDS ORDERED: Pharmacy Ordered Lab Info OTHER ONE (11:45)
[2018-05-11 12:16] LABS: Hematocrit 32.4 % (39.0-51.0); Hemoglobin 10.6 gm/dL (13.0-17.0); Mean Corpuscular HGB Conc 32.6 % (32.0-36.0); Mean Corpuscular Hemoglobin 25.9 pg (27.0-34.0); Mean Corpuscular Volume 79.6 fL (80.0-100.0); Mean Platelet Volume 7.8 fL (7.0-11.0); Platelet Count 376 th/mm3 (150-450); Red Blood Count 4.07 mil/mm3 (4.50-5.90); Red Cell Distribution Width 16.2 % (11.6-17.2); White Blood Count 8.9 th/mm3 (4.0-11.0)
[2018-05-11 12:47] LABS: Alanine Aminotransferase 64 U/L (12-78); Albumin 2.3 g/dL (3.4-5.0); Anion Gap 7 meq/L (5-15); Aspartate Aminotransferase 34 U/L (15-37); Blood Urea Nitrogen 8 mg/dL (7-18); Calcium 8.3 mg/dL (8.5-10.1); Carbon Dioxide 29.1 meq/L (21.0-32.0); Chloride 108 meq/L (98-107); Glomerular Filtration Rate Greater Than 89 mL/min (>89); Glucose,Random 157 mg/dL (74-106); Potassium 4.1 meq/L (3.5-5.1); Sodium 144 meq/L (136-145)
[2018-05-11 12:50] LABS: Alkaline Phosphatase 112 U/L (45-117); Total Protein 7.6 g/dL (6.4-8.2)
[2018-05-12] MEDS: Vancomycin Inj 1,000 MG in Sodium Chlor 0.9% Inj 250 ML IV.SIG SCH (00:55)
[2018-05-12] MEDS: Scopalamine 1.5 MG Patch T-DERMAL SCH (00:56)
[2018-05-12] MEDS: Piperacil/Tazo 4.5 GM Premix 4.5 GM/100 ML BAG IV.SIG SCH ×4 (04:01→20:38)
[2018-05-12] MEDS: Rivaroxaban 10 MG Tablet G-TUBE SCH (08:22)
[2018-05-12] MEDS: Ascorbic Acid 500 MG Tablet PO SCH ×2 (08:22→20:38)
[2018-05-12] MEDS: Senna/Docusate Sodium 8.6/50 MG Tablet PO SCH ×2 (08:23→20:38)
[2018-05-12] MEDS ORDERED: Albumin Human 5% Inj 500 ML IV.SIG ONE (09:27)
[2018-05-12] MEDS ORDERED: Norepinephrine Inj 16 MG in Sodium Chlor 0.9% Inj 234 ML IV.CONT PRN (09:35)
[2018-05-12] MEDS ORDERED: Potassium Chlor 20 mEq Premix 20 MEQ/100 ML PIGGYBACK IV.SIG PRN ×2 (10:27)
[2018-05-12] MEDS ORDERED: Potassium Chlor 40 mEq Premix 40 MEQ/100 ML PIGGYBACK IV.SIG PRN ×2 (10:27)
[2018-05-12] MEDS ORDERED: Dextrose 50% in Water 50 ML Vial IV.PUSH PRN (10:27)
[2018-05-12] MEDS ORDERED: Potassium Phosphate 500 MG Soluble Tablet PO PRN ×2 (10:27)
[2018-05-12] MEDS ORDERED: Magnesium Sulfate Inj 2 GM in Sodium Chlor 0.9% Inj 96 ML IV.SIG PRN (10:27)
[2018-05-12] MEDS ORDERED: Sodium Phosphate Inj 30 MMOL in Sodium Chlor 0.9% Inj 250 ML IV.SIG PRN (10:27)
[2018-05-12] MEDS ORDERED: Magnesium Sulfate Inj 4 GM in Sodium Chlor 0.9% Inj 92 ML IV.SIG PRN (10:27)
[2018-05-12] MEDS ORDERED: Potassium Chloride 25 MEQ Effervescent Tablet PO PRN (10:27)
[2018-05-12] MEDS ORDERED: Magnesium Oxide 400 MG Tablet PO PRN (10:27)
[2018-05-12] MEDS ORDERED: Potassium Phosphate Inj 30 MMOL in Sodium Chlor 0.9% Inj 250 ML IV.SIG PRN (10:27)
[2018-05-12 10:43] LABS: Baso # (Auto) 0.1 th/mm3 (0.0-0.2); Baso % (Auto) 0.6 % (0.0-2.0); Eos # (Auto) 0.4 th/mm3 (0.0-0.4); Eos % (Auto) 3.9 % (0.0-4.0); Hematocrit 32.4 % (39.0-51.0); Hemoglobin 10.4 gm/dL (13.0-17.0); Lymph # (Auto) 1.9 th/mm3 (1.0-4.8); Lymph % (Auto) 18.2 % (9.0-44.0); Mean Corpuscular Hemoglobin 25.6 pg (27.0-34.0); Mean Platelet Volume 7.5 fL (7.0-11.0); Mono % (Auto) 9.6 % (0.0-8.0); Neut % (Auto) 67.7 % (16.0-70.0); Platelet Count 381 th/mm3 (150-450); Red Blood Count 4.05 mil/mm3 (4.50-5.90); Red Cell Distribution Width 16.3 % (11.6-17.2); White Blood Count 10.4 th/mm3 (4.0-11.0)
[2018-05-12 10:54] LABS: INR 1.2 Ratio; Prothrombin Time 12.4 sec (9.8-11.6)
[2018-05-12] MEDS ORDERED: Vasopressin Inj 40 UNIT in Sodium Chlor 0.9% Inj 98 ML IV.CONT SCH (11:00)
[2018-05-12 11:03] LABS: Alanine Aminotransferase 57 U/L (12-78); Albumin 2.3 g/dL (3.4-5.0); Anion Gap 10 meq/L (5-15); Aspartate Aminotransferase 33 U/L (15-37); Blood Urea Nitrogen 7 mg/dL (7-18); Calcium 8.3 mg/dL (8.5-10.1); Carbon Dioxide 28.1 meq/L (21.0-32.0); Chloride 105 meq/L (98-107); Glomerular Filtration Rate Greater Than 89 mL/min (>89); Glucose,Random 144 mg/dL (74-106); Magnesium 2.2 mg/dL (1.5-2.5); Potassium 3.5 meq/L (3.5-5.1); Sodium 143 meq/L (136-145)
[2018-05-12 11:07] LABS: Alkaline Phosphatase 105 U/L (45-117); Total Protein 7.6 g/dL (6.4-8.2)
[2018-05-12 11:13] LABS: Creatine Kinase 87 U/L (39-308)
[2018-05-12] MEDS: Insulin NovoLOG Aspart Correctional Sugar Inj SQ SCH ×2 (11:51→17:34)
[2018-05-12] MEDS: Morphine Sulfate Inj 2 MG/ML Vial IV.PUSH PRN ×2 (14:26→21:53)
--- NOTE | 2018-05-12 18:27 | ECG ---
Date Performed: 05/12/2018 Time Performed: 11:04:59 PTAGE: 47 years EKG: SINUS TACHYCARDIA, POSSIBLE ATRIAL FLUTTER NONSPECIFIC T-WAVE ABNORMALITY ABNORMAL RHYTHM E CG PREVIOUS TRACING : 05/11/2018 10.54 Compared to previous tracing, sinus tachycardia is new DOCTOR: Gennaro Vasques Interpretating Date/Time 05/12/2018 18:25:30
[2018-05-12] MEDS: Carboxymethylcellulose 0.5% Opth Drops 15 ML Bottle EACH EYE SCH (20:38)
[2018-05-12] MEDS ORDERED: Hypromellose 0.3% Opth Gel 10 GM Bottle EACH EYE SCH (21:00)
[2018-05-13] MEDS: Insulin NovoLOG Aspart Correctional Sugar Inj SQ SCH ×4 (00:34→18:34)
[2018-05-13] MEDS: Piperacil/Tazo 4.5 GM Premix 4.5 GM/100 ML BAG IV.SIG SCH ×4 (03:09→20:41)
[2018-05-13 04:32] LABS: Baso # (Auto) 0.1 th/mm3 (0.0-0.2); Baso % (Auto) 0.9 % (0.0-2.0); Eos # (Auto) 0.4 th/mm3 (0.0-0.4); Eos % (Auto) 5.8 % (0.0-4.0); Hematocrit 28.4 % (39.0-51.0); Hemoglobin 9.3 gm/dL (13.0-17.0); Lymph # (Auto) 1.5 th/mm3 (1.0-4.8); Lymph % (Auto) 23.4 % (9.0-44.0); Mean Corpuscular Hemoglobin 26.1 pg (27.0-34.0); Mean Corpuscular Volume 79.2 fL (80.0-100.0); Mean Platelet Volume 7.5 fL (7.0-11.0); Mono # (Auto) 0.9 th/mm3 (0.0-0.9); Mono % (Auto) 12.9 % (0.0-8.0); Neut # (Auto) 3.8 th/mm3 (1.8-7.7); Platelet Count 369 th/mm3 (150-450); Red Blood Count 3.58 mil/mm3 (4.50-5.90); Red Cell Distribution Width 16.1 % (11.6-17.2); White Blood Count 6.6 th/mm3 (4.0-11.0)
[2018-05-13 04:39] LABS: Anion Gap 9 meq/L (5-15); Blood Urea Nitrogen 6 mg/dL (7-18); Calcium 8.5 mg/dL (8.5-10.1); Carbon Dioxide 27.3 meq/L (21.0-32.0); Chloride 107 meq/L (98-107); Glomerular Filtration Rate Greater Than 89 mL/min (>89); Glucose,Random 79 mg/dL (74-106); Magnesium 2.2 mg/dL (1.5-2.5); Sodium 143 meq/L (136-145)
[2018-05-13] MEDS: Senna/Docusate Sodium 8.6/50 MG Tablet PO SCH ×2 (08:49→20:41)
[2018-05-13] MEDS: Carboxymethylcellulose 0.5% Opth Drops 15 ML Bottle EACH EYE SCH ×2 (08:50→20:41)
[2018-05-13] MEDS: Ascorbic Acid 500 MG Tablet PO SCH ×2 (08:50→20:41)
[2018-05-13] MEDS: Rivaroxaban 10 MG Tablet G-TUBE SCH (08:50)
[2018-05-14] MEDS: Insulin NovoLOG Aspart Correctional Sugar Inj SQ SCH ×3 (00:39→16:20)
[2018-05-14] MEDS: Piperacil/Tazo 4.5 GM Premix 4.5 GM/100 ML BAG IV.SIG SCH ×4 (03:04→21:29)
[2018-05-14 04:37] LABS: Baso # (Auto) 0.1 th/mm3 (0.0-0.2); Baso % (Auto) 1.1 % (0.0-2.0); Eos # (Auto) 0.7 th/mm3 (0.0-0.4); Eos % (Auto) 11.1 % (0.0-4.0); Hematocrit 30.7 % (39.0-51.0); Lymph # (Auto) 1.6 th/mm3 (1.0-4.8); Lymph % (Auto) 27.4 % (9.0-44.0); Mean Corpuscular HGB Conc 32.7 % (32.0-36.0); Mean Corpuscular Hemoglobin 25.8 pg (27.0-34.0); Mean Corpuscular Volume 79.1 fL (80.0-100.0); Mean Platelet Volume 7.4 fL (7.0-11.0); Mono # (Auto) 0.7 th/mm3 (0.0-0.9); Mono % (Auto) 12.3 % (0.0-8.0); Neut # (Auto) 2.8 th/mm3 (1.8-7.7); Neut % (Auto) 48.1 % (16.0-70.0); Platelet Count 410 th/mm3 (150-450); Red Blood Count 3.88 mil/mm3 (4.50-5.90); Red Cell Distribution Width 16.1 % (11.6-17.2); White Blood Count 5.9 th/mm3 (4.0-11.0)
[2018-05-14 04:51] LABS: Anion Gap 9 meq/L (5-15); Blood Urea Nitrogen 8 mg/dL (7-18); Calcium 8.5 mg/dL (8.5-10.1); Carbon Dioxide 28.5 meq/L (21.0-32.0); Chloride 104 meq/L (98-107); Glomerular Filtration Rate Greater Than 89 mL/min (>89); Glucose,Random 112 mg/dL (74-106); Magnesium 2.2 mg/dL (1.5-2.5); Potassium 3.7 meq/L (3.5-5.1); Sodium 141 meq/L (136-145)
[2018-05-14] MEDS: Ascorbic Acid 500 MG Tablet PO SCH ×2 (08:21→21:28)
[2018-05-14] MEDS: Rivaroxaban 10 MG Tablet G-TUBE SCH (08:21)
[2018-05-14] MEDS: Carboxymethylcellulose 0.5% Opth Drops 15 ML Bottle EACH EYE SCH ×2 (08:29→21:28)
[2018-05-14] MEDS: Senna/Docusate Sodium 8.6/50 MG Tablet PO SCH ×2 (08:29→21:27)
[2018-05-14] MEDS ORDERED: Potassium Chloride 25 MEQ Effervescent Tablet PO ONE (12:58)
[2018-05-15] MEDS: Insulin NovoLOG Aspart Correctional Sugar Inj SQ SCH ×5 (01:19→17:21)
[2018-05-15] MEDS: Scopalamine 1.5 MG Patch T-DERMAL SCH (03:12)
[2018-05-15] MEDS: Piperacil/Tazo 4.5 GM Premix 4.5 GM/100 ML BAG IV.SIG SCH ×4 (03:12→21:22)
[2018-05-15 03:47] LABS: Baso # (Auto) 0.1 th/mm3 (0.0-0.2); Baso % (Auto) 0.7 % (0.0-2.0); Eos # (Auto) 0.4 th/mm3 (0.0-0.4); Eos % (Auto) 3.4 % (0.0-4.0); Hematocrit 33.5 % (39.0-51.0); Hemoglobin 10.8 gm/dL (13.0-17.0); Lymph # (Auto) 1.6 th/mm3 (1.0-4.8); Lymph % (Auto) 14.7 % (9.0-44.0); Mean Corpuscular HGB Conc 32.1 % (32.0-36.0); Mean Corpuscular Hemoglobin 25.6 pg (27.0-34.0); Mean Corpuscular Volume 79.9 fL (80.0-100.0); Mean Platelet Volume 7.5 fL (7.0-11.0); Mono % (Auto) 9.6 % (0.0-8.0); Neut # (Auto) 7.6 th/mm3 (1.8-7.7); Neut % (Auto) 71.6 % (16.0-70.0); Platelet Count 437 th/mm3 (150-450); Red Cell Distribution Width 16.3 % (11.6-17.2); White Blood Count 10.6 th/mm3 (4.0-11.0)
[2018-05-15 04:11] LABS: Alanine Aminotransferase 94 U/L (12-78); Albumin 2.5 g/dL (3.4-5.0); Anion Gap 9 meq/L (5-15); Aspartate Aminotransferase 78 U/L (15-37); Blood Urea Nitrogen 8 mg/dL (7-18); Calcium 8.3 mg/dL (8.5-10.1); Carbon Dioxide 26.2 meq/L (21.0-32.0); Chloride 103 meq/L (98-107); Glomerular Filtration Rate Greater Than 89 mL/min (>89); Glucose,Random 102 mg/dL (74-106); Magnesium 2.1 mg/dL (1.5-2.5); Phosphorus 2.5 mg/dL (2.5-4.9); Potassium 3.8 meq/L (3.5-5.1); Sodium 138 meq/L (136-145)
[2018-05-15 04:14] LABS: Alkaline Phosphatase 105 U/L (45-117); Total Protein 7.9 g/dL (6.4-8.2)
[2018-05-15] MEDS: Rivaroxaban 10 MG Tablet G-TUBE SCH (08:53)
[2018-05-15] MEDS: Senna/Docusate Sodium 8.6/50 MG Tablet PO SCH ×2 (08:54→21:22)
[2018-05-15] MEDS: Ascorbic Acid 500 MG Tablet PO SCH ×2 (08:56→21:22)
[2018-05-15] MEDS: Carboxymethylcellulose 0.5% Opth Drops 15 ML Bottle EACH EYE SCH ×2 (09:10→23:50)
[2018-05-16] MEDS: Insulin NovoLOG Aspart Correctional Sugar Inj SQ SCH ×4 (02:30→21:54)
[2018-05-16] MEDS: Piperacil/Tazo 4.5 GM Premix 4.5 GM/100 ML BAG IV.SIG SCH ×2 (03:23→09:02)
[2018-05-16] MEDS: Ascorbic Acid 500 MG Tablet PO SCH ×2 (09:02→21:57)
[2018-05-16] MEDS: Senna/Docusate Sodium 8.6/50 MG Tablet PO SCH ×2 (09:02→21:58)
[2018-05-16] MEDS: Carboxymethylcellulose 0.5% Opth Drops 15 ML Bottle EACH EYE SCH ×2 (09:05→21:59)
[2018-05-16] MEDS: Rivaroxaban 10 MG Tablet G-TUBE SCH (09:06)
[2018-05-17] MEDS: Senna/Docusate Sodium 8.6/50 MG Tablet PO SCH ×3 (00:24→22:43)
[2018-05-17] MEDS: Insulin NovoLOG Aspart Correctional Sugar Inj SQ SCH ×4 (05:36→18:02)
[2018-05-17] MEDS ORDERED: Atropine Inj 1 MG/10 ML Syringe ONE (09:01)
[2018-05-17] MEDS: Ascorbic Acid 500 MG Tablet PO SCH ×2 (09:20→22:42)
[2018-05-17] MEDS: Rivaroxaban 10 MG Tablet G-TUBE SCH (09:22)
[2018-05-17] MEDS: Carboxymethylcellulose 0.5% Opth Drops 15 ML Bottle EACH EYE SCH ×2 (09:22→22:43)
[2018-05-18] MEDS: Insulin NovoLOG Aspart Correctional Sugar Inj SQ SCH ×4 (00:03→18:30)
[2018-05-18] MEDS: Scopalamine 1.5 MG Patch T-DERMAL SCH (01:20)
[2018-05-18] MEDS: Morphine Sulfate Inj 2 MG/ML Vial IV.PUSH PRN (08:45)
[2018-05-18] MEDS: Senna/Docusate Sodium 8.6/50 MG Tablet PO SCH ×2 (08:53→21:31)
[2018-05-18] MEDS: Carboxymethylcellulose 0.5% Opth Drops 15 ML Bottle EACH EYE SCH ×2 (08:54→21:33)
[2018-05-18] MEDS: Ascorbic Acid 500 MG Tablet PO SCH ×2 (08:54→21:31)
[2018-05-18] MEDS: Rivaroxaban 10 MG Tablet G-TUBE SCH (09:11)
[2018-05-18 16:32] LABS: Baso # (Auto) 0.1 th/mm3 (0.0-0.2); Baso % (Auto) 0.8 % (0.0-2.0); Eos # (Auto) 0.1 th/mm3 (0.0-0.4); Eos % (Auto) 1.7 % (0.0-4.0); Hematocrit 37.7 % (39.0-51.0); Lymph # (Auto) 2.4 th/mm3 (1.0-4.8); Lymph % (Auto) 33.8 % (9.0-44.0); Mean Corpuscular HGB Conc 34.6 % (32.0-36.0); Mean Corpuscular Hemoglobin 26.9 pg (27.0-34.0); Mean Platelet Volume 7.8 fL (7.0-11.0); Mono # (Auto) 0.7 th/mm3 (0.0-0.9); Mono % (Auto) 9.5 % (0.0-8.0); Neut # (Auto) 3.9 th/mm3 (1.8-7.7); Neut % (Auto) 54.2 % (16.0-70.0); Platelet Count 407 th/mm3 (150-450); Red Blood Count 4.83 mil/mm3 (4.50-5.90); Red Cell Distribution Width 16.5 % (11.6-17.2); White Blood Count 7.2 th/mm3 (4.0-11.0)
[2018-05-18 16:56] LABS: Alanine Aminotransferase 213 U/L (12-78); Albumin 2.9 g/dL (3.4-5.0); Alkaline Phosphatase 141 U/L (45-117); Anion Gap 9 meq/L (5-15); Aspartate Aminotransferase 162 U/L (15-37); Blood Urea Nitrogen 9 mg/dL (7-18); Calcium 9.3 mg/dL (8.5-10.1); Carbon Dioxide 25.4 meq/L (21.0-32.0); Chloride 102 meq/L (98-107); Glomerular Filtration Rate Greater Than 89 mL/min (>89); Glucose,Random 91 mg/dL (74-106); Phosphorus 3.2 mg/dL (2.5-4.9); Potassium 4.8 meq/L (3.5-5.1); Sodium 136 meq/L (136-145); Total Protein 9.2 g/dL (6.4-8.2)
[2018-05-18 17:53] LABS: Bilirubin,Urine Negative (Negative); Clarity,Urine Clear (Clear); Color,Urine Yellow (Yellw/Straw); Glucose,Urine (UA) Negative (Negative); Leukocyte Esterase,Urine Negative (Negative); Nitrite,Urine Negative (Negative); Specific Gravity,Urine 1.005 (1.002-1.035)
[2018-05-18] MEDS ORDERED: Metoprolol Tartrate 25 MG Tablet G-TUBE ONE (23:04)
[2018-05-19] MEDS: Insulin NovoLOG Aspart Correctional Sugar Inj SQ SCH ×4 (00:47→18:34)
[2018-05-19] MEDS: Ascorbic Acid 500 MG Tablet PO SCH ×2 (09:31→21:38)
[2018-05-19] MEDS: Senna/Docusate Sodium 8.6/50 MG Tablet PO SCH ×2 (09:31→21:38)
[2018-05-19] MEDS: Carboxymethylcellulose 0.5% Opth Drops 15 ML Bottle EACH EYE SCH ×2 (09:32→21:48)
[2018-05-19] MEDS: Rivaroxaban 10 MG Tablet G-TUBE SCH (09:35)
[2018-05-19 15:33] LABS: Alanine Aminotransferase 188 U/L (12-78); Albumin 2.7 g/dL (3.4-5.0); Anion Gap 7 meq/L (5-15); Aspartate Aminotransferase 112 U/L (15-37); Blood Urea Nitrogen 9 mg/dL (7-18); Calcium 8.9 mg/dL (8.5-10.1); Carbon Dioxide 26.8 meq/L (21.0-32.0); Chloride 103 meq/L (98-107); Glomerular Filtration Rate Greater Than 89 mL/min (>89); Glucose,Random 100 mg/dL (74-106); Potassium 4.3 meq/L (3.5-5.1); Sodium 137 meq/L (136-145)
[2018-05-19 15:35] LABS: Alkaline Phosphatase 135 U/L (45-117); Total Protein 8.8 g/dL (6.4-8.2)
[2018-05-19] MEDS: Morphine Sulfate Inj 2 MG/ML Vial IV.PUSH PRN (21:38)
[2018-05-20] MEDS ORDERED: Metoprolol Tartrate 25 MG Tablet PO ONE (00:46)
[2018-05-20] MEDS: Insulin NovoLOG Aspart Correctional Sugar Inj SQ SCH ×3 (01:18→12:50)
[2018-05-20] MEDS: Morphine Sulfate Inj 2 MG/ML Vial IV.PUSH PRN ×2 (05:57→12:30)
[2018-05-20] MEDS: Senna/Docusate Sodium 8.6/50 MG Tablet PO SCH ×2 (09:00→22:24)
[2018-05-20] MEDS: Ascorbic Acid 500 MG Tablet PO SCH ×2 (09:00→22:23)
[2018-05-20] MEDS: Carboxymethylcellulose 0.5% Opth Drops 15 ML Bottle EACH EYE SCH ×2 (09:00→22:24)
[2018-05-20] MEDS: Rivaroxaban 10 MG Tablet G-TUBE SCH (09:00)
[2018-05-21] MEDS: Insulin NovoLOG Aspart Correctional Sugar Inj SQ SCH ×5 (00:23→19:32)
[2018-05-21] MEDS: Scopalamine 1.5 MG Patch T-DERMAL SCH (00:55)
[2018-05-21 07:01] LABS: Baso # (Auto) 0.1 th/mm3 (0.0-0.2); Baso % (Auto) 0.7 % (0.0-2.0); Eos # (Auto) 0.3 th/mm3 (0.0-0.4); Eos % (Auto) 3.1 % (0.0-4.0); Hematocrit 34.7 % (39.0-51.0); Hemoglobin 11.4 gm/dL (13.0-17.0); Lymph # (Auto) 1.4 th/mm3 (1.0-4.8); Lymph % (Auto) 16.6 % (9.0-44.0); Mean Corpuscular HGB Conc 32.7 % (32.0-36.0); Mean Corpuscular Hemoglobin 25.7 pg (27.0-34.0); Mean Corpuscular Volume 78.5 fL (80.0-100.0); Mean Platelet Volume 7.5 fL (7.0-11.0); Mono % (Auto) 12.4 % (0.0-8.0); Neut # (Auto) 5.6 th/mm3 (1.8-7.7); Neut % (Auto) 67.2 % (16.0-70.0); Platelet Count 400 th/mm3 (150-450); Red Blood Count 4.43 mil/mm3 (4.50-5.90); Red Cell Distribution Width 16.4 % (11.6-17.2); White Blood Count 8.3 th/mm3 (4.0-11.0)
[2018-05-21 07:56] LABS: Anion Gap 9 meq/L (5-15); Blood Urea Nitrogen 10 mg/dL (7-18); Calcium 8.6 mg/dL (8.5-10.1); Carbon Dioxide 24.5 meq/L (21.0-32.0); Chloride 104 meq/L (98-107); Glomerular Filtration Rate Greater Than 89 mL/min (>89); Glucose,Random 96 mg/dL (74-106); Magnesium 1.9 mg/dL (1.5-2.5); Potassium 3.9 meq/L (3.5-5.1); Sodium 137 meq/L (136-145)
[2018-05-21 07:59] LABS: Phosphorus 3.2 mg/dL (2.5-4.9)
[2018-05-21] MEDS: Morphine Sulfate Inj 2 MG/ML Vial IV.PUSH PRN (09:00)
[2018-05-21] MEDS: Senna/Docusate Sodium 8.6/50 MG Tablet PO SCH ×2 (09:38→22:25)
[2018-05-21] MEDS: Carboxymethylcellulose 0.5% Opth Drops 15 ML Bottle EACH EYE SCH ×2 (09:38→22:26)
[2018-05-21] MEDS: Rivaroxaban 10 MG Tablet G-TUBE SCH (09:39)
[2018-05-21] MEDS: Ascorbic Acid 500 MG Tablet PO SCH ×2 (09:39→22:25)
[2018-05-22] MEDS: Insulin NovoLOG Aspart Correctional Sugar Inj SQ SCH ×4 (02:04→18:07)
[2018-05-22] MEDS: Senna/Docusate Sodium 8.6/50 MG Tablet PO SCH ×2 (09:39→21:24)
[2018-05-22] MEDS: Rivaroxaban 10 MG Tablet G-TUBE SCH (09:40)
[2018-05-22] MEDS: Ascorbic Acid 500 MG Tablet PO SCH ×2 (09:40→21:24)
[2018-05-22] MEDS: Carboxymethylcellulose 0.5% Opth Drops 15 ML Bottle EACH EYE SCH ×2 (09:42→21:25)
[2018-05-23] MEDS: Insulin NovoLOG Aspart Correctional Sugar Inj SQ SCH ×3 (03:55→13:13)
[2018-05-23] MEDS ORDERED: Metoprolol Tartrate 25 MG Tablet G-TUBE ONE (04:26)
[2018-05-23] MEDS: Ascorbic Acid 500 MG Tablet PO SCH (09:47)
[2018-05-23] MEDS: Senna/Docusate Sodium 8.6/50 MG Tablet PO SCH (09:47)
[2018-05-23] MEDS: Carboxymethylcellulose 0.5% Opth Drops 15 ML Bottle EACH EYE SCH (09:47)
[2018-05-23] MEDS: Rivaroxaban 10 MG Tablet G-TUBE SCH (09:47)
[2018-05-23] MEDS ORDERED: Metoprolol Tartrate 25 MG Tablet PO SCH (21:00)
== END 2018-05-23 14:09 ==
LOC: NEPE 19:34 → NEDA 22:39 → HIMC 05-09 01:10 → N05 05-17 17:02
PROVIDERS: ADMIT Hospitalist; ATTEND Hospitalist